=== PATIENT | female | born 1970 | race Caucasian/White ===

== ENCOUNTER 2017-05-29 16:10 | Inpatient (IN) | payer BC ==
[2017-05-29] MEDS ORDERED: Lactated Ringers 1,000 ML IV SCH (17:00)
[2017-05-29] MEDS ORDERED: methylPREDNISolone Sodium Succinate 125 MG/2 ML SDV IVPUSH ONE (17:15)
[2017-05-29] MEDS ORDERED: Levofloxacin/Dextrose 5%-Water 500 MG in Premix Bag 1 BAG IV ONE (17:15)
[2017-05-29] MEDS: Insulin Aspart 100 Units/ML 3 ML Pen SUBCUT SCH ×2 (17:33→20:11)
[2017-05-29] MEDS: Albuterol/Ipratropium 3.0-0.5 MG/3 ML Neb Soln NEB SCH ×2 (17:33→20:16)
[2017-05-29 17:37] LABS: CHLORIDE,CL 94 mEq/L (98-106); SODIUM,NA 128 mEq/L (136-145)
[2017-05-29] MEDS: Nicotine 14 MG/24 Hr Patch TRDERM SCH (18:05)
[2017-05-29] MEDS: Sodium Chloride 0.9% 1,000 ML IV SCH (18:05)
[2017-05-29] MEDS ORDERED: Insulin Detemir 100 Units/ML 3 ML Pen SUBCUT SCH (20:00)
[2017-05-29] MEDS: Enoxaparin 40 MG/0.4 ML Syringe SUBCUT SCH (20:07)
[2017-05-30] MEDS: Sodium Chloride 0.9% 1,000 ML IV SCH ×2 (07:54→21:04)
[2017-05-30] MEDS: Sertraline 100 MG Tab PO SCH (07:56)
[2017-05-30] MEDS: methylPREDNISolone Sodium Succinate 125 MG/2 ML SDV IVPUSH SCH (07:56)
[2017-05-30] MEDS: metFORMIN 500 MG Tab.ER PO SCH (07:56)
[2017-05-30] MEDS ORDERED: Remove Patch NICOTINE PATCH TRDERM SCH (08:00)
[2017-05-30] MEDS: Insulin Aspart 100 Units/ML 3 ML Pen SUBCUT SCH ×4 (08:05→20:57)
[2017-05-30] MEDS: Albuterol/Ipratropium 3.0-0.5 MG/3 ML Neb Soln NEB SCH ×4 (08:09→20:55)
[2017-05-30] MEDS: Nicotine 14 MG/24 Hr Patch TRDERM SCH (08:18)
[2017-05-30] MEDS: Ibuprofen 200 MG Tab PO PRN (08:21)
--- NOTE | 2017-05-30 09:37 | PN ---
DATE: 05/30/2017 S: Carmen Rocha is in with severe bronchiolitis, diabetes mellitus. O: NECK: Supple. CHEST: Wheezing throughout. CARDIAC: Sounds are good. EXTREMITIES: No edema. ASSESSMENT: [id number] BRONCHIOLITIS, UNCONTROLLED DIABETES MELLITUS. P: We are going to put her on a high sliding scale and try and get her under good control. Apparently, she does not have good control as an outpatient. She also has low magnesium, so we will start her on some magnesium. CASEY/BETTYE /[id number]
[2017-05-30] MEDS ORDERED: Insulin Aspart 100 Units/ML 3 ML Pen SUBCUT ONE ×2 (15:09→17:08)
[2017-05-30] MEDS: Enoxaparin 40 MG/0.4 ML Syringe SUBCUT SCH (20:55)
[2017-05-30] MEDS: Levofloxacin/Dextrose 5%-Water 500 MG in Premix Bag 1 BAG IV SCH (20:55)
[2017-05-30] MEDS: Insulin Detemir 100 Units/ML 3 ML Pen SUBCUT SCH (20:57)
[2017-05-30] MEDS: Acetaminophen 325 MG Tab PO PRN (21:04)
[2017-05-30] MEDS: Temazepam 15 MG Cap PO PRN (21:07)
[2017-05-31 07:33] LABS: CHLORIDE,CL 102 mEq/L (98-106); SODIUM,NA 135 mEq/L (136-145)
[2017-05-31] MEDS: metFORMIN 500 MG Tab.ER PO SCH (07:34)
[2017-05-31] MEDS: Sertraline 100 MG Tab PO SCH (07:34)
[2017-05-31] MEDS: Nicotine 14 MG/24 Hr Patch TRDERM SCH (07:34)
[2017-05-31] MEDS: methylPREDNISolone Sodium Succinate 125 MG/2 ML SDV IVPUSH SCH (07:35)
[2017-05-31] MEDS: Insulin Aspart 100 Units/ML 3 ML Pen SUBCUT SCH ×6 (08:25→21:23)
[2017-05-31] MEDS: Albuterol/Ipratropium 3.0-0.5 MG/3 ML Neb Soln NEB SCH ×4 (08:26→21:23)
[2017-05-31] MEDS: Ibuprofen 200 MG Tab PO PRN (11:10)
[2017-05-31] MEDS: Sodium Chloride 0.9% 1,000 ML IV SCH (12:03)
[2017-05-31] MEDS ORDERED: Iopamidol 612 MG/ML 100 ML Bottle IVPUSH ONE (12:46)
[2017-05-31] MEDS: Acetaminophen 325 MG Tab PO PRN (14:29)
--- NOTE | 2017-05-31 14:54 | PN ---
DATE: 05/31/2017 S: Carmen Rocha is in with bronchiolitis. O: NECK: Supple. CHEST: Still wheezing throughout. CARDIAC: Sounds are good. ASSESSMENT: DIABETES UNDER BETTER CONTROL TODAY AT 168. WE HAD A LONG DISCUSSION ABOUT DIET, WEIGHT LOSS, AND EXERCISE. P: Continue present therapy. CASEY/BETTYE /[id number]
[2017-05-31] MEDS: Enoxaparin 40 MG/0.4 ML Syringe SUBCUT SCH (19:16)
[2017-05-31] MEDS: Levofloxacin/Dextrose 5%-Water 500 MG in Premix Bag 1 BAG IV SCH (19:17)
[2017-05-31] MEDS: Insulin Detemir 100 Units/ML 3 ML Pen SUBCUT SCH (19:20)
[2017-05-31] MEDS: Temazepam 15 MG Cap PO PRN (23:11)
[2017-06-01] MEDS: Sodium Chloride 0.9% 1,000 ML IV SCH (03:22)
[2017-06-01] MEDS: metFORMIN 500 MG Tab.ER PO SCH (07:55)
[2017-06-01] MEDS: Sertraline 100 MG Tab PO SCH (07:55)
[2017-06-01] MEDS: methylPREDNISolone Sodium Succinate 125 MG/2 ML SDV IVPUSH SCH (07:55)
[2017-06-01] MEDS: Nicotine 14 MG/24 Hr Patch TRDERM SCH (07:56)
[2017-06-01] MEDS: Insulin Aspart 100 Units/ML 3 ML Pen SUBCUT SCH ×7 (07:57→21:21)
[2017-06-01] MEDS: Albuterol/Ipratropium 3.0-0.5 MG/3 ML Neb Soln NEB SCH ×4 (08:01→21:19)
[2017-06-01] MEDS: Acetaminophen 325 MG Tab PO PRN (08:08)
--- NOTE | 2017-06-01 08:42 | PCM.PN ---
- General Info Date of Service: 06/01/17 Admission Dx/Problem (Free Text): Bilateral Pneumonia Functional Status: Reports: Pain Controlled, Tolerating Diet. Denies: Ambulating - Review of Systems General: Reports: Weakness, Fatigue. Denies: Fever HEENT: Reports: No Symptoms Pulmonary: Reports: Shortness of Breath, Pleuritic Chest Pain, Cough, Wheezing Cardiovascular: Denies: Chest Pain, Edema, Lightheadedness Gastrointestinal: Denies: Abdominal Pain, Nausea, Vomiting Genitourinary: Reports: No Symptoms Musculoskeletal: Reports: No Symptoms Skin: Reports: No Symptoms Neurological: Reports: No Symptoms - Patient Data Vitals - Most Recent: Last Vital Signs Temp 98.0 F 06/01/17 07:43 Pulse 91 06/01/17 07:43 Resp 16 06/01/17 07:43 BP 145/70 H 06/01/17 07:43 Pulse Ox 93 L 06/01/17 07:43 Weight - Most Recent: 207 lb I&O - Last 24 Hours: Intake & Output 05/31/17 06/01/17 06/01/17 22:59 06:59 14:59 Intake Total 1000 Balance 1000 Lab Results Last 24 Hours: Laboratory Results - last 24 hr 05/31/17 05/31/17 05/31/17 Range/Units 11:40 17:27 20:52 POC Glucose 389 H 337 H 321 H (75-105) mg/dl 06/01/17 Range/Units 07:32 POC Glucose 150 H (75-105) mg/dl Edwin Results Last 24 Hours: Microbiology 05/29/17 18:50 Gram Stain - Final Sputum - Expectorated Sputum Culture - Preliminary Med Orders - Current: Current Medications Acetaminophen (Tylenol) 650 mg PO Q4H PRN PRN Reason: Pain (Mild 1-3)/fever Last Admin: 06/01/17 08:08 Dose: 650 mg Albuterol/Ipratropium (Duoneb 3.0-0.5 Mg/3 Ml) 3 ml NEB QIDRT [facility] Last Admin: 06/01/17 08:01 Dose: 3 ml Enoxaparin Sodium (Lovenox) 40 mg SUBCUT BEDTIME [facility] Last Admin: 05/31/17 19:16 Dose: 40 mg Levofloxacin/Dextrose 500 mg/ (Premix) 100 mls @ 100 mls/hr IV Q24H [facility] Last Admin: 05/31/17 19:17 Dose: 100 mls/hr Sodium Chloride (Normal Saline) 1,000 mls @ 75 mls/hr IV ASDIRECTED [facility] Last Admin: 06/01/17 03:22 Dose: 75 mls/hr Ibuprofen (Motrin) 200 - 600 mg PO Q6H PRN PRN Reason: Pain/Fever Last Admin: 05/31/17 11:10 Dose: 400 mg Insulin Aspart (Novolog) 0 unit SUBCUT WITHMEALSANDBED [facility] PRN Reason: Protocol Last Admin: 06/01/17 07:57 Dose: Not Given Insulin Aspart (Novolog) 10 unit SUBCUT TIDMEALS [facility] Last Admin: 06/01/17 07:57 Dose: 10 units Insulin Detemir (Levemir) 30 unit SUBCUT BEDTIME [facility] Last Admin: 05/31/17 19:20 Dose: 30 units Magnesium Oxide (Magnesium Oxide) 250 mg PO WITHBREAKFAST [facility] Last Admin: 06/01/17 07:56 Dose: 250 mg Metformin HCl (Glucophage Xr) 2,000 mg PO DAILY [facility] Last Admin: 06/01/17 07:55 Dose: 2,000 mg Methylprednisolone Sodium Succinate (Solu-Medrol) 62.5 mg IVPUSH Q24H [facility] Last Admin: 06/01/17 07:55 Dose: 62.5 mg Nicotine (Habitrol) 14 mg TRDERM DAILY [facility] Last Admin: 06/01/17 07:56 Dose: 14 mg Sertraline HCl (Zoloft) 200 mg PO DAILY [facility] Last Admin: 06/01/17 07:55 Dose: 200 mg Temazepam (Restoril) 15 mg PO BEDTIME PRN PRN Reason: Sleep Last Admin: 05/31/17 23:11 Dose: 15 mg Discontinued Medications Lactated Ringer's (Ringers, Lactated) 1,000 mls @ 75 mls/hr IV ASDIRECTED [facility] Last Admin: 05/29/17 17:29 Dose: 75 mls/hr Levofloxacin/Dextrose 500 mg/ (Premix) 100 mls @ 100 mls/hr IV ONETIME ONE Stop: 05/29/17 18:14 Last Admin: 05/29/17 17:30 Dose: 100 mls/hr Insulin Aspart (Novolog) 10 unit SUBCUT ONETIME ONE Stop: 05/30/17 15:10 Last Admin: 05/30/17 15:15 Dose: 10 units Insulin Aspart (Novolog) 10 unit SUBCUT ONETIME ONE Stop: 05/30/17 17:09 Last Admin: 05/30/17 17:19 Dose: 10 units Insulin Detemir (Levemir) 20 unit SUBCUT BEDTIME [facility] Last Admin: 05/29/17 20:10 Dose: 20 unit Iopamidol (Isovue-300 (61%)) 100 ml IVPUSH ONETIME ONE Stop: 05/31/17 12:47 Last Admin: 05/31/17 20:03 Dose: Not Given Methylprednisolone Sodium Succinate (Solu-Medrol) 62.5 mg IVPUSH ONETIME ONE Stop: 05/29/17 17:16 Last Admin: 05/29/17 17:29 Dose: 62.5 mg Miscellaneous Information (Remove Patch) 1 ea TRDERM DAILY [facility] - Exam General: Alert, Oriented HEENT: Mucous Membr. Moist/Bode Neck: Supple Lungs: Decreased Breath Sounds, Rhonchi, Wheezing Cardiovascular: Regular Rate, Regular Rhythm GI/Abdominal Exam: Normal Bowel Sounds, Soft, Non-Tender Extremities: Normal Inspection, No Pedal Edema Skin: Warm, Dry Neurological: No New Focal Deficit Psy/Mental Status: Alert, Normal Affect, Normal Mood - Problem List & Annotations (1) Pneumonia SNOMED Code(s): 832879381 Code(s): J18.9 - PNEUMONIA, UNSPECIFIED ORGANISM Status: Acute Current Visit: Yes Qualifiers: Pneumonia type: due to unspecified organism Laterality: bilateral Lung location: lower lobe of lung Qualified Code(s): J18.9 - Pneumonia, unspecified organism - Problem List Review Problem List Initiated/Reviewed/Updated: Yes - My Orders Last 24 Hours: My Active Orders 05/31/17 12:00 Insulin Aspart [NovoLOG] 10 unit SUBCUT TIDMEALS - Assessment Assessment:: Bilateral pneumonia due to unspecified organism. - Plan Plan:: Patient still continuing to cough, feels short of breath with any exertion. Patient still wheezing. Does have fatigue. CT scan of her chest was done yesterday and does show bilateral diffuse patchy infiltrates, ground glass in appearance with significant hilar adenopathy. Blood sugars still running high. Meal time insulin was added yesterday and basal was increased prior to this. Does not follow the diet given here, family also bring in meals for her as well as she is still on steroids. Due to CT noting bilateral pneumonia, will keep the patient another day or 2 for IV antibiotics, steroids and adjust insulin as needed. Repeat labs in am. Continue nebulizer treatments. Encouraged to ambulate today if able to tolerate.
[2017-06-01] MEDS: Enoxaparin 40 MG/0.4 ML Syringe SUBCUT SCH (19:54)
[2017-06-01] MEDS: Levofloxacin/Dextrose 5%-Water 500 MG in Premix Bag 1 BAG IV SCH (19:54)
[2017-06-01] MEDS: Insulin Detemir 100 Units/ML 3 ML Pen SUBCUT SCH (21:20)
[2017-06-01] MEDS: Temazepam 15 MG Cap PO PRN (23:25)
[2017-06-02 07:39] LABS: CHLORIDE,CL 100 mEq/L (98-106); SODIUM,NA 137 mEq/L (136-145)
[2017-06-02] MEDS: metFORMIN 500 MG Tab.ER PO SCH (07:40)
[2017-06-02] MEDS: Sertraline 100 MG Tab PO SCH (07:40)
[2017-06-02] MEDS: Nicotine 14 MG/24 Hr Patch TRDERM SCH (07:41)
[2017-06-02] MEDS: methylPREDNISolone Sodium Succinate 125 MG/2 ML SDV IVPUSH SCH (07:43)
[2017-06-02] MEDS: Insulin Aspart 100 Units/ML 3 ML Pen SUBCUT SCH ×5 (07:48→16:56)
[2017-06-02] MEDS ORDERED: Insulin Aspart 100 Units/ML 3 ML Pen SUBCUT SCH (08:00)
[2017-06-02] MEDS: Albuterol/Ipratropium 3.0-0.5 MG/3 ML Neb Soln NEB SCH ×3 (08:03→15:34)
[2017-06-02 11:32] VITALS: BP 148/76
--- NOTE | 2017-06-02 12:47 | PCM.DCSUM1 ---
Discharge Summary - Hospital Course Free Text/Narrative:: Patient was admitted on 05/29/17 with bilateral pneumonia. She has been on IV levaquin and IV steroids. Patient is starting to feel quite a bit better. Blood sugars have been monitored closely due to elevation secondary to steroids but also underlying poor overall control. Patient states normal blood sugars run 300-400 at home. She is being sent home on a schedule dose of novolog prior to meals. She will need to follow up with her regular provider to adjust those doses. She has been afebrile the last 48 hours. O2 sats are greater than 95%. This morning lungs were quite wheezy however after lunch she was moving much more air and lungs sounded better with a few scattered wheezes and pops primarily RUL. She is ambulating in [place] with very mild SOB and we have her working on an incentive spirometer. She is well enough to be discharged home to complete recuperation there. She is to use albuterol nebs at least 4 times daily at home and is give an RX for that. She can use her moms nebulizer. She is going to get a dose of outpatient levaquin tomorrow and is to follow up with her regular provider on sunday to see if she is ready to be switched to oral antibiotics. Patient voiced understanding of all this information. - Discharge Data Discharge Date: 06/02/17 Discharge Disposition: Home, Self-Care 01 Condition: Good - Discharge Diagnosis/Problem(s) (1) Pneumonia SNOMED Code(s): 967805865 ICD Code: J18.9 - PNEUMONIA, UNSPECIFIED ORGANISM Status: Acute Priority : High Current Visit: Yes Qualifiers: Pneumonia type: due to unspecified organism Laterality: bilateral Lung location: lower lobe of lung Qualified Code(s): J18.9 - Pneumonia, unspecified organism - Patient Summary/Data Consults: Consultations 05/29/17 17:00 Respiratory Care Assess and Treatment [CONS] Routine - Patient Instructions Diet: Heart Healthy Diet Activity: As Tolerated Driving: May Drive Today Showering/Bathing: May Shower Notify Provider of: Fever Other/Special Instructions: Return to ER if you develop chest pain or extreme shortness of breath or feel like you are getting worse instead of better. - Discharge Plan Home Medications: Home Meds Ibuprofen 200 - 600 mg PO Q6H PRN 07/15/14 [History] Sertraline HCl 200 mg PO DAILY 07/15/14 [History] Calcium Carbonate [Tums] 500 mg PO DAILY PRN 05/29/17 [History] MV,Ca,Min/Iron Fum/FA/Vit K [Multi For Her Tablet] 1 tab PO DAILY 05/29/17 [ History] metFORMIN HCl [Metformin HCl ER] 2,000 mg PO DAILY 05/29/17 [History] Albuterol/Ipratropium [DuoNeb 3.0-0.5 MG/3 ML] 3 ml NEB QIDRT #0 neb 06/02/17 [ Rx] Insulin Aspart [NovoLOG] 10 unit SUBCUT 0800 #0 pen 06/02/17 [Rx] Insulin Aspart [NovoLOG] 20 unit SUBCUT 1200 pen 06/02/17 [Rx] Insulin Aspart [NovoLOG] 20 unit SUBCUT 1730 pen 06/02/17 [Rx] Insulin Detemir [Levemir] 30 unit SUBCUT BEDTIME pen 06/02/17 [Rx] Patient Handouts: Shortness of Breath, [id number] - Discharge Summary/Plan Comment DC Time >30 min.: No - Patient Data Vitals - Most Recent: Last Vital Signs Temp 36.5 C 06/02/17 11:31 Pulse 66 06/02/17 11:31 Resp 18 06/02/17 11:31 BP 148/76 H 06/02/17 11:31 Pulse Ox 98 06/02/17 11:31 Weight - Most Recent: 93.894 kg I&O - Last 24 hours: Intake & Output 06/01/17 06/02/17 06/02/17 22:59 06:59 14:59 Intake Total 400 Balance 400 Lab Results - Last 24 hrs: Laboratory Results - last 24 hr 06/01/17 06/01/17 06/01/17 Range/Units 11:35 17:31 20:08 WBC (5.0-10.0) 10^3/uL RBC (4.00-5.50) 10^6/uL Hgb (12.0-16.0) g/dL Hct (37.0-47.0) % MCV (82.0-94.0) fL MCH (27.0-32.0) pg MCHC (33.0-38.0) g/dL RDW Coeff of Devan (11.0-15.0) % Plt Count (150-400) 10^3/uL Neut % (Auto) (35-85) % Lymph % (Auto) (10-55) % [place] % (Auto) (0-16) % Eos % (Auto) (0-5) % Baso % (Auto) (0-3) % Neut # (Auto) (1.80-7.00) 10^3/uL Lymph # (Auto) (1.00-4.80) 10^3/uL [place] # (Auto) (0.00-0.80) 10^3/uL Eos # (Auto) (0.00-0.45) 10^3/uL Baso # (Auto) 10^3/uL Sodium (136-145) mEq/L Potassium (3.5-5.0) mEq/L Chloride (98-106) mEq/L Carbon Dioxide (21-32) mmol/L BUN (7-18) mg/dL Creatinine (0.6-1.0) mg/dL Est Cr Clr Drug Dosing mL/min Estimated GFR (MDRD) (>=60) mL/min Glucose (75-99) mg/dL POC Glucose 296 H 319 H 316 H (75-105) mg/dl Calcium (8.4-10.1) mg/dL C-Reactive Protein (0.2-0.8) mg/dL 06/02/17 06/02/17 06/02/17 Range/Units 05:11 05:11 07:25 WBC 10.8 H (5.0-10.0) 10^3/uL RBC 4.25 (4.00-5.50) 10^6/uL Hgb 12.6 (12.0-16.0) g/dL Hct 38.4 (37.0-47.0) % MCV 90.4 (82.0-94.0) fL MCH 29.6 (27.0-32.0) pg MCHC 32.8 L (33.0-38.0) g/dL RDW Coeff of Devan 13.9 (11.0-15.0) % Plt Count 246 (150-400) 10^3/uL Neut % (Auto) 58.6 (35-85) % Lymph % (Auto) 31.4 (10-55) % [place] % (Auto) 6.7 (0-16) % Eos % (Auto) 3.0 (0-5) % Baso % (Auto) 0.3 (0-3) % Neut # (Auto) 6.35 (1.80-7.00) 10^3/uL Lymph # (Auto) 3.39 (1.00-4.80) 10^3/uL [place] # (Auto) 0.72 (0.00-0.80) 10^3/uL Eos # (Auto) 0.32 (0.00-0.45) 10^3/uL Baso # (Auto) 0.03 10^3/uL Sodium 137 (136-145) mEq/L Potassium 3.7 (3.5-5.0) mEq/L Chloride 100 (98-106) mEq/L Carbon Dioxide 30 (21-32) mmol/L BUN 10 (7-18) mg/dL Creatinine 0.6 (0.6-1.0) mg/dL Est Cr Clr Drug Dosing 105.26 mL/min Estimated GFR (MDRD) > 60 (>=60) mL/min Glucose 167 H (75-99) mg/dL POC Glucose 147 H (75-105) mg/dl Calcium 8.7 (8.4-10.1) mg/dL C-Reactive Protein 1.7 H (0.2-0.8) mg/dL [facility]AD[facility] Results - Last 24 hrs: Microbiology 05/29/17 18:50 Gram Stain - Final Sputum - Expectorated Sputum Culture - Final Med Orders - Current: Current Medications Acetaminophen (Tylenol) 650 mg PO Q4H PRN PRN Reason: Pain (Mild 1-3)/fever Last Admin: 06/01/17 08:08 Dose: 650 mg Albuterol/Ipratropium (Duoneb 3.0-0.5 Mg/3 Ml) 3 ml NEB QIDRT [facility] Last Admin: 06/02/17 08:03 Dose: 3 ml Enoxaparin Sodium (Lovenox) 40 mg SUBCUT BEDTIME [facility] Last Admin: 06/01/17 19:54 Dose: 40 mg Levofloxacin/Dextrose 500 mg/ (Premix) 100 mls @ 100 mls/hr IV Q24H [facility] Last Admin: 06/01/17 19:54 Dose: 100 mls/hr Ibuprofen (Motrin) 200 - 600 mg PO Q6H PRN PRN Reason: Pain/Fever Last Admin: 05/31/17 11:10 Dose: 400 mg Insulin Aspart (Novolog) 0 unit SUBCUT WITHMEALSANDBED [facility] PRN Reason: Protocol Last Admin: 06/02/17 12:01 Dose: 9 unit Insulin Aspart (Novolog) 10 unit SUBCUT 0800 [facility] Last Admin: 06/02/17 07:48 Dose: 10 units Insulin Aspart (Novolog) 20 unit SUBCUT 1200 [facility] Last Admin: 06/02/17 12:01 Dose: 20 units Insulin Aspart (Novolog) 20 unit SUBCUT 1730 [facility] Last Admin: 06/01/17 17:33 Dose: 20 units Insulin Detemir (Levemir) 30 unit SUBCUT BEDTIME [facility] Last Admin: 06/01/17 21:20 Dose: 30 units Magnesium Oxide (Magnesium Oxide) 250 mg PO WITHBREAKFAST [facility] Last Admin: 06/02/17 07:40 Dose: 250 mg Metformin HCl (Glucophage Xr) 2,000 mg PO DAILY [facility] Last Admin: 06/02/17 07:40 Dose: 2,000 mg Methylprednisolone Sodium Succinate (Solu-Medrol) 62.5 mg IVPUSH Q24H [facility] Last Admin: 06/02/17 07:43 Dose: 62.5 mg Nicotine (Habitrol) 14 mg TRDERM DAILY [facility] Last Admin: 06/02/17 07:41 Dose: 14 mg Sertraline HCl (Zoloft) 200 mg PO DAILY [facility] Last Admin: 06/02/17 07:40 Dose: 200 mg Temazepam (Restoril) 15 mg PO BEDTIME PRN PRN Reason: Sleep Last Admin: 06/01/17 23:25 Dose: 15 mg Discontinued Medications Lactated Ringer's (Ringers, Lactated) 1,000 mls @ 75 mls/hr IV ASDIRECTED [facility] Last Admin: 05/29/17 17:29 Dose: 75 mls/hr Levofloxacin/Dextrose 500 mg/ (Premix) 100 mls @ 100 mls/hr IV ONETIME ONE Stop: 05/29/17 18:14 Last Admin: 05/29/17 17:30 Dose: 100 mls/hr Sodium Chloride (Normal Saline) 1,000 mls @ 75 mls/hr IV ASDIRECTED [facility] Last Admin: 06/01/17 03:22 Dose: 75 mls/hr Insulin Aspart (Novolog) 10 unit SUBCUT ONETIME ONE Stop: 05/30/17 15:10 Last Admin: 05/30/17 15:15 Dose: 10 units Insulin Aspart (Novolog) 10 unit SUBCUT ONETIME ONE Stop: 05/30/17 17:09 Last Admin: 05/30/17 17:19 Dose: 10 units Insulin Aspart (Novolog) 10 unit SUBCUT TIDMEALS [facility] Last Admin: 06/01/17 07:57 Dose: 10 units Insulin Detemir (Levemir) 20 unit SUBCUT BEDTIME [facility] Last Admin: 05/29/17 20:10 Dose: 20 unit Iopamidol (Isovue-300 (61%)) 100 ml IVPUSH ONETIME ONE Stop: 05/31/17 12:47 Last Admin: 05/31/17 20:03 Dose: Not Given Methylprednisolone Sodium Succinate (Solu-Medrol) 62.5 mg IVPUSH ONETIME ONE Stop: 05/29/17 17:16 Last Admin: 05/29/17 17:29 Dose: 62.5 mg Miscellaneous Information (Remove Patch) 1 ea TRDERM DAILY [facility] *Q Meaningful Use (DIS) - VTE *Q VTE Criteria *Q: - Stroke *Q Stroke Criteria *Q: - AMI *Q AMI Criteria *Q:
[2017-06-02] MEDS ORDERED: Levofloxacin/Dextrose 5%-Water 500 MG in Premix Bag 1 BAG IV SCH (16:00)
== END 2017-06-02 17:24 | disposition home or self-care (01) | DRG 139 ==
LOC: UNDOADMIN 16:10 → CC.MS 16:10
PROVIDERS: ADMIT General Practice; ATTEND General Practice
DX: J18.9 Pneumonia, unspecified organism (principal); F32.9 Major depressive disorder, single episode, unspecified; E11.65 Type 2 diabetes mellitus with hyperglycemia; Z79.4 Long term (current) use of insulin; Z79.84 Long term (current) use of oral hypoglycemic drugs; E83.42 Hypomagnesemia; Z88.8 Allergy status to other drugs, medicaments and biological substances; Z79.899 Other long term (current) drug therapy
CPT/HCPCS: 36415; 71020; 71260; 80048; 80053; 81001; 82962; 83735; 84443; 85025; 86140; 87070; 87205; 94640; 94640-76; A9270-GY; J1650; J1815-GY; J1956; J2930; J7030; J7120; Q9967

== ENCOUNTER 2019-05-02 13:23 | Emergency (ER) | payer BC ==
[2019-05-02] MEDS ORDERED: Acetaminophen/oxyCODONE 325-5 MG Tab PO ONE (13:39)
[2019-05-02] MEDS ORDERED: Silver Sulfadiazine 1% Crm 20 GM Tube TOP ONE (13:40)
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
[2019-05-02 13:44] VITALS: BP 142/74
[2019-05-02] MEDS ORDERED: Silver Sulfadiazine 1% Crm 50 GM Tube TOP ONE (13:52)
[2019-05-02] MEDS ORDERED: Diphtheria,Pertussis(Acell),Tetanus Vaccine 0.5 ML Syringe IM ONE (13:53)
== END 2019-05-02 14:30 | disposition home or self-care (01) ==
LOC: CC.ED 13:23
DX: T23.272A Burn of second degree of left wrist, initial encounter (principal); E11.9 Type 2 diabetes mellitus without complications; Z23 Encounter for immunization; Z88.5 Allergy status to narcotic agent; Z88.8 Allergy status to other drugs, medicaments and biological substances; Z79.899 Other long term (current) drug therapy; X19.XXXA Contact with other heat and hot substances, initial encounter
CPT/HCPCS: 16020; 90471; 90715; 99282; A9270-GY

== ENCOUNTER → 2020-06-11 | Day surgery (SDC) | payer BC ==
[~2020-06-11] MED LIST: Ketamine 200 MG/20 ML MDV IV ONE; Lactated Ringers 1,000 ML IV SCH; Propofol 200 MG/20 ML SDV IV ONE; fentaNYL 100 MCG/2 ML SDV IV ONE
[2020-06-11 12:29] VITALS: BP 180/74; PULSE 57
--- NOTE | 2020-06-11 15:05 | OR ---
DATE OF OPERATION: 06/11/2020 PREOPERATIVE DIAGNOSIS: EPIGASTRIC PAIN. POSTOPERATIVE DIAGNOSIS: EPIGASTRIC PAIN. SURGEON: Rickey Mills MD PROCEDURE: DIAGNOSTIC EGD WITH BIOPSIES X3, LU, FORCEPS POLYP REMOVAL X1. ANESTHESIA: MAC. COMPLICATIONS: None. SPECIMEN: 1. Duodenal bulb biopsy x1. 2. Fundal biopsy x1. 3. Distal esophageal biopsy x1. 4. Antral LU. 5. Fundal polyp. FINDINGS: 1. Full-length diagnostic EGD. 2. Heterotopic gastric tissue, duodenal bulb. 3. Small hiatal hernia with reflux esophagitis and ulceration. 4. Fundal polyposis, mild. 5. Evidence of prior healed small gastric erosions. RECOMMENDATIONS: Given the lack of any obvious acute or significant issue for her significant epigastric pain, nausea, and altered bowel habits, would recommend gallbladder evaluation. INDICATIONS: The patient has been having some ongoing issues with epigastric pain postprandial at times associated with altered bowel habits. May Lindsey sent her for diagnostic EGD concerned with peptic ulcer disease. DESCRIPTION OF PROCEDURE: The patient was prepped and draped, placed in the left lateral decubitus position. A lubricated Olympus gastroscope was inserted over a bit, advanced to cricopharyngeus area, and easily intubated into the esophagus. The esophageal lining was benign until its most distal portion. The Z-line is crisp, around 37 cm. There is a small hernia present. No spontaneous reflux was seen, but there was 1 small area of esophagitis with a small little ulceration. We did do a biopsy of that. The scope was easily passed into the stomach, through the pylorus, and into the second portion of the duodenum. The second portion of duodenum was benign. The duodenal bulb had some heterotopic gastric tissue biopsied for confirmation. The scope was brought back into the stomach and retroflexed. The upper fundus and cardia were essentially benign other than seeing the small hernia. There were probably 3 or 4 very small fundal polyps, we did remove one in its entirety. No active peptic ulcer disease was seen in the fundus or antrum. The patient had evidence of some very small erosions that are healed over. We did do a biopsy of one of these, took a CLOtest from the antrum. Air was then suctioned from the stomach and the scope removed without complication. MILENA/BETTYE /[id number]
== END ==
LOC: CC.SDS 10:00
PROVIDERS: ATTEND Family Medicine
DX: K31.89 Other diseases of stomach and duodenum (principal); K31.7 Polyp of stomach and duodenum; K22.10 Ulcer of esophagus without bleeding; K20.90 Esophagitis, unspecified without bleeding; E11.9 Type 2 diabetes mellitus without complications; F17.210 Nicotine dependence, cigarettes, uncomplicated; Z88.8 Allergy status to other drugs, medicaments and biological substances; Z79.899 Other long term (current) drug therapy; Z79.4 Long term (current) use of insulin; Z98.890 Other specified postprocedural states
CPT/HCPCS: 76705; 87081; J2001; J2704; J3010; J7120

== ENCOUNTER 2020-10-04 18:16 | Observation (INO) | payer BC ==
[2020-10-04 19:05] LABS: CHLORIDE,CL 94 mEq/L (98-106); SODIUM,NA 134 mEq/L (136-145)
[2020-10-04] MEDS ORDERED: Ondansetron 4 MG/2 ML SDV IVPUSH STA (19:09)
[2020-10-04] MEDS ORDERED: Lactated Ringers 1,000 ML IV ONE (19:09)
[2020-10-04] MEDS ORDERED: Sodium Chloride 0.9% 1,000 ML IV ONE (19:10)
--- NOTE | 2020-10-04 19:16 | EDM.PDOC ---
ED HPI GENERAL MEDICAL PROBLEM - General Chief Complaint: Gastrointestinal Problem Stated Complaint: N/V/D Time Seen by Provider: 10/04/20 18:40 Source of Information: Reports: Patient History Limitations: Reports: No Limitations - History of Present Illness INITIAL COMMENTS - FREE TEXT/NARRATIVE: Carmen is a 49 yo female who presents to the ED with c/o nausea, vomiting, and diarrhea. She reports symptoms started at 5 am today. She reports she has vomited 10+ times today and has had 3-4 loose stools. Reports she has been unable to eat or drink all day. She denies any abdominal pain or fever. Does report she had lumbar fusion approximately 2 weeks ago. Has been doing well post operatively. She denies any other symptoms or complaints. Onset: Today Onset Date: 10/04/20 Onset Time: 05:00 Duration: Constant Location: Reports: Abdomen (nausea, vomiting, diarrhea) Associated Symptoms: Reports: Loss of Appetite, Malaise, Nausea/Vomiting. Denies: Confusion, Chest Pain, Cough, cough w sputum, Diaphoresis, Fever/Chills, Headaches, Rash, Seizure, Shortness of Breath, Syncope, Weakness - Related Data Allergies Allergy/AdvReac Type Severity Reaction Status Date / Time morphine Allergy Diaphoresis Verified 10/04/20 18:32 naproxen Allergy Hives Verified 10/04/20 18:32 sucralfate [From Carafate] Allergy Cannot Verified 10/04/20 18:32 Remember Home Meds: Home Meds Ibuprofen 200 - 600 mg PO Q6H PRN 07/15/14 [History] Citalopram Hydrobromide [Celexa] 40 mg PO DAILY 06/10/20 [History] sitaGLIPtin Phos/Metformin HCl [Janumet Xr 50-1,000 mg Tablet] 1 tab PO DAILY 06/10/20 [History] Pantoprazole Sodium [Protonix] 40 mg PO DAILY 06/11/20 [History] Past Medical History [employer] History: Reports: Other (See Below) Other [employer] History: partial hysterectomy Endocrine/Metabolic History: Reports: Diabetes, Type II - Past Surgical History Musculoskeletal Surgical History: Reports: Other (See Below) Other Musculoskeletal Surgeries/Procedures:: back surgery Social & Family History - Family History Family Medical History: No Pertinent Family History - Tobacco Use Tobacco Use Status *Q: Never Tobacco User - Caffeine Use Caffeine Use: Reports: None - Recreational Drug Use Recreational Drug Use: No ED ROS GENERAL - Review of Systems Review Of Systems: Comprehensive ROS is negative, except as noted in HPI. Constitutional: Reports: Malaise, Decreased Appetite. Denies: Fever, Weakness HEENT: Reports: No Symptoms Respiratory: Reports: No Symptoms. Denies: Shortness of Breath, Cough Cardiovascular: Reports: No Symptoms. Denies: Chest Pain, Dyspnea on Exertion, Edema, Lightheadedness Endocrine: Reports: High Glucose GI/Abdominal: Reports: Diarrhea, Decreased Appetite, Nausea, Vomiting. Denies: Abdominal Pain, Black Stool, Bloody Stool : Reports: No Symptoms. Denies: Dysuria, Flank Pain, Frequency, Urgency Musculoskeletal: Reports: No Symptoms Skin: Reports: No Symptoms Neurological: Reports: No Symptoms Psychiatric: Reports: No Symptoms Hematologic/Lymphatic: Reports: No Symptoms Immunologic: Reports: No Symptoms ED EXAM, GI/ABD - Physical Exam Exam: See Below Exam Limited By: No Limitations General Appearance: Alert, WD/WN, No Apparent Distress, Mild Distress Eyes: Bilateral: EOMI Throat/Mouth: Normal Inspection, Normal Lips, Normal Teeth, Normal Gums, Normal Oropharynx, Normal Voice, No Airway Compromise Head: Atraumatic, Normocephalic Neck: Normal Inspection, Supple, Non-Tender, Full Range of Motion Respiratory/Chest: No Respiratory Distress, Lungs Clear, Normal Breath Sounds, No Accessory Muscle Use, Chest Non-Tender Cardiovascular: Normal Peripheral Pulses, Regular Rate, Rhythm, No Edema, No Gallop, No JVD, No Murmur, No Rub GI/Abdominal Exam: Normal Bowel Sounds, Soft, Non-Tender, No Organomegaly, No Distention, No Mass. No: Guarding, Rigid, Rebound, Tender Back Exam: Normal Inspection, Full Range of Motion, NT Extremities: Normal Inspection, Normal Range of Motion, Non-Tender, Normal Capillary Refill, No Pedal Edema Neurological: Alert, Oriented, CN II-XII Intact, Normal Cognition, Normal Gait, Normal Reflexes, No Motor/Sensory Deficits Psychiatric: Anxious Skin Exam: Warm, Dry, Intact, Normal Color, No Rash Lymphatic: No Adenopathy Course - Vital Signs Last Recorded V/S: Last Vital Signs Temp 98.9 F 10/04/20 19:45 Pulse 75 10/04/20 19:45 Resp 16 10/04/20 19:45 BP 176/80 H 10/04/20 19:45 Pulse Ox 98 10/04/20 19:45 - Orders/Labs/Meds Orders: Active Orders 24 hr Category Date Time Status Patient Status Manage Transfer [TRANSFER] Routine ADT 10/04/20 20:33 Active Resuscitation Status Routine Resus Stat 10/04/20 20:34 Ordered Labs: Laboratory Tests 10/04/20 10/04/20 10/04/20 Range/Units 18:36 18:39 18:48 WBC 14.2 H (5.0-10.0) 10^3/uL RBC 4.15 (4.00-5.50) 10^6/uL Hgb 13.0 (12.0-16.0) g/dL Hct 37.4 (37.0-47.0) % MCV 90.1 (82.0-94.0) fL MCH 31.3 (27.0-32.0) pg MCHC 34.8 (33.0-38.0) g/dL RDW Coeff of Devan 12.7 (11.0-15.0) % Plt Count 549 H (150-400) 10^3/uL Neut % (Auto) 80.8 (35-85) % Lymph % (Auto) 13.2 (10-55) % [place] % (Auto) 5.6 (0-16) % Eos % (Auto) 0.2 (0-5) % Baso % (Auto) 0.2 (0-3) % Neut # (Auto) 11.47 H (1.80-7.00) 10^3/uL Lymph # (Auto) 1.88 (1.00-4.80) 10^3/uL [place] # (Auto) 0.80 (0.00-0.80) 10^3/uL Eos # (Auto) 0.03 (0.00-0.45) 10^3/uL Baso # (Auto) 0.03 10^3/uL Sodium (136-145) mEq/L Potassium (3.5-5.0) mEq/L Chloride (98-106) mEq/L Carbon Dioxide (21-32) mmol/L BUN (7-18) mg/dL Creatinine (0.6-1.0) mg/dL Est Cr Clr Drug Dosing mL/min Estimated GFR (MDRD) (>=60) mL/min Glucose (75-99) mg/dL Calcium (8.4-10.1) mg/dL Total Bilirubin (0.0-1.0) mg/dL AST (15-37) U/L ALT (12-78) U/L Alkaline Phosphatase (46-116) U/L C-Reactive Protein (0.2-0.8) mg/dL Total Protein (6.4-8.2) g/dL Albumin (3.4-5.0) g/dL Amylase (25-115) U/L Lipase (73-393) U/L Urine Color Yellow (YELLOW) Urine Appearance Turbid (CLEAR) Urine pH 7.0 (4.5-8.0) Ur Specific [place] >= 1.030 H (1.003-1.020) Urine Protein >=300 H (NEGATIVE) mg/dL Urine Glucose (UA) 250 H (NEGATIVE) mg/dL Urine Ketones 40 H (NEGATIVE) mg/dL Urine Occult Blood Trace-intact H (NEGATIVE) Urine Nitrite Negative (NEGATIVE) Urine Bilirubin Negative (NEGATIVE) Urine Urobilinogen 0.2 (0.2-1.0) EU/dL Ur Leukocyte Esterase Negative (NEGATIVE) Urine RBC 0-5 (0-5) /HPF Urine WBC 0-5 (0-5) /HPF Amorphous Sediment Many H (NOT SEEN) /HPF Urine Opiates Screen Negative (NEGATIVE) Ur Oxycodone Screen Negative (NEGATIVE) Urine Methadone Screen Negative (NEGATIVE) Ur Barbiturates Screen Negative (NEGATIVE) U Tricyclic Antidepress Positive H (NEGATIVE) Ur Phencyclidine Scrn Negative (NEGATIVE) Ur Amphetamine Screen Negative (NEGATIVE) U Methamphetamines Scrn Negative (NEGATIVE) Urine MDMA Screen Negative (NEGATIVE) U Benzodiazepines Scrn Negative (NEGATIVE) Urine Cocaine Screen Negative (NEGATIVE) U Marijuana (THC) Screen Positive H (NEGATIVE) SARS CoV-2 RNA Rapid CHERRIE (NEGATIVE) 10/04/20 10/04/20 Range/Units 18:48 18:48 WBC (5.0-10.0) 10^3/uL RBC (4.00-5.50) 10^6/uL Hgb (12.0-16.0) g/dL Hct (37.0-47.0) % MCV (82.0-94.0) fL MCH (27.0-32.0) pg MCHC (33.0-38.0) g/dL RDW Coeff of Devan (11.0-15.0) % Plt Count (150-400) 10^3/uL Neut % (Auto) (35-85) % Lymph % (Auto) (10-55) % [place] % (Auto) (0-16) % Eos % (Auto) (0-5) % Baso % (Auto) (0-3) % Neut # (Auto) (1.80-7.00) 10^3/uL Lymph # (Auto) (1.00-4.80) 10^3/uL [place] # (Auto) (0.00-0.80) 10^3/uL Eos # (Auto) (0.00-0.45) 10^3/uL Baso # (Auto) 10^3/uL Sodium 134 L (136-145) mEq/L Potassium 4.3 (3.5-5.0) mEq/L Chloride 94 L (98-106) mEq/L Carbon Dioxide 27 (21-32) mmol/L BUN 9 (7-18) mg/dL Creatinine 0.8 (0.6-1.0) mg/dL Est Cr Clr Drug Dosing 74.86 mL/min Estimated GFR (MDRD) > 60 (>=60) mL/min Glucose 305 H* (75-99) mg/dL Calcium 9.9 (8.4-10.1) mg/dL Total Bilirubin 0.6 (0.0-1.0) mg/dL AST 10 L (15-37) U/L ALT 15 (12-78) U/L Alkaline Phosphatase 129 H (46-116) U/L C-Reactive Protein 5.3 H (0.2-0.8) mg/dL Total Protein 8.5 H (6.4-8.2) g/dL Albumin 3.5 (3.4-5.0) g/dL Amylase 64 (25-115) U/L Lipase 82 (73-393) U/L Urine Color (YELLOW) Urine Appearance (CLEAR) Urine pH (4.5-8.0) Ur Specific [place] (1.003-1.020) Urine Protein (NEGATIVE) mg/dL Urine Glucose (UA) (NEGATIVE) mg/dL Urine Ketones (NEGATIVE) mg/dL Urine Occult Blood (NEGATIVE) Urine Nitrite (NEGATIVE) Urine Bilirubin (NEGATIVE) Urine Urobilinogen (0.2-1.0) EU/dL Ur Leukocyte Esterase (NEGATIVE) Urine RBC (0-5) /HPF Urine WBC (0-5) /HPF Amorphous Sediment (NOT SEEN) /HPF Urine Opiates Screen (NEGATIVE) Ur Oxycodone Screen (NEGATIVE) Urine Methadone Screen (NEGATIVE) Ur Barbiturates Screen (NEGATIVE) U Tricyclic Antidepress (NEGATIVE) Ur Phencyclidine Scrn (NEGATIVE) Ur Amphetamine Screen (NEGATIVE) U Methamphetamines Scrn (NEGATIVE) Urine MDMA Screen (NEGATIVE) U Benzodiazepines Scrn (NEGATIVE) Urine Cocaine Screen (NEGATIVE) U Marijuana (THC) Screen (NEGATIVE) SARS CoV-2 RNA Rapid CHERRIE Negative (NEGATIVE) Meds: Medications Discontinued Medications Generic Name Dose Route Start Last Admin Trade Name Freq PRN Reason Stop Dose Admin Lactated Ringer's 1,000 mls @ 999 mls/hr 10/04/20 19:09 10/04/20 19:26 Ringers, Lactated IV 10/04/20 20:09 Not Given .BOLUS ONE Sodium Chloride 1,000 mls @ 999 mls/hr 10/04/20 19:10 10/04/20 19:24 Normal Saline IV 10/04/20 20:10 999 mls/hr .BOLUS ONE Administration Ondansetron HCl 4 mg 10/04/20 19:09 10/04/20 19:23 Zofran IVPUSH 10/04/20 19:10 4 mg STAT STA Administration Ondansetron HCl 2 packet 10/04/20 20:19 10/04/20 20:30 Take Home: Ondansetron Odt 4 Mg, 2 Tab Pack PO 10/04/20 20:20 Not Given ONETIME ONE - Re-Assessments/Exams Free Text/Narrative Re-Assessment/Exam: 10/04/20 20:45 1 L fluid bolus and 4 mg zofran completed. Patient continues to have generalized malaise, nausea and vomiting. Did have 100 mL emesis. Will admit to observation for continued IV fluids and antiemetics. Recheck labs in am. 10/04/20 21:05 Departure - Departure Time of Disposition: 20:33 Disposition: Refer to Observation Condition: Fair Clinical Impression: Viral gastroenteritis - Discharge Information *PRESCRIPTION DRUG MONITORING PROGRAM REVIEWED*: Not Applicable *COPY OF PRESCRIPTION DRUG MONITORING REPORT IN PATIENT MATT: Not Applicable Instructions: Viral Gastroenteritis, Adult, [id number] Referrals: May Lindsey PA-C [Primary Care Provider] - Forms: ED Department Discharge Sepsis Event Note (ED) - Evaluation Sepsis Screening Result: No Definite Risk - Focused Exam Vital Signs: Vital Signs Temp Pulse Resp BP BP Pulse Ox 10/04/20 19:45 98.9 F 75 16 176/80 H 98 10/04/20 18:59 188/68 H 10/04/20 18:23 96.3 F L 76 18 194/104 H 99 - Problem List & Annotations (1) Nausea & vomiting SNOMED Code(s): 27326833 Code(s): R11.2 - NAUSEA WITH VOMITING, UNSPECIFIED Status: Acute Qualifiers: Vomiting type: unspecified Vomiting Intractability: non-intractable Qualified Code(s): R11.2 - Nausea with vomiting, unspecified (2) Dehydration SNOMED Code(s): 75620582 Code(s): E86.0 - DEHYDRATION Status: Acute (3) Leukocytosis SNOMED Code(s): 747510736, 918821566 Code(s): D72.829 - ELEVATED WHITE BLOOD CELL COUNT, UNSPECIFIED Status: Acute Qualifiers: Leukocytosis type: unspecified Qualified Code(s): D72.829 - Elevated white blood cell count, unspecified - Problem List Review Problem List Initiated/Reviewed/Updated: Yes - My Orders Last 24 Hours: My Active Orders 10/04/20 20:33 Patient Status Manage Transfer [TRANSFER] Routine 10/04/20 20:34 Resuscitation Status Routine - Assessment/Plan Admission H&P: Please use this note as an admission H&P Last 24 Hours: My Active Orders 10/04/20 20:33 Patient Status Manage Transfer [TRANSFER] Routine 10/04/20 20:34 Resuscitation Status Routine Assessment:: Nausea and vomiting Dehydration Leukocytosis Plan: Presents with 12+ hours of nausea, vomiting and diarrhea. Has been unable to keep any oral liquids down all day. Labs significant for WBC 14.2, CRP 5.3, Na 134. Patient appears dry. Drug screen + marijuana. Active emesis during ED stay despite IV zofran. Will admit to observation overnight for continued IV fluids and antiemetics. Repeat lab work in am. If patient develops fever or abdominal pain, will need imaging. Patient agreeable with overnight stay. Transferred to floor in satisfactory condition.
[2020-10-04] MEDS ORDERED: Take Home: Ondansetron 4 MG Tab.DIS, 2 Tab Pack PO ONE (20:19)
[2020-10-04] MEDS ORDERED: Ibuprofen 200 MG Tab PO PRN (20:55)
[2020-10-04] MEDS ORDERED: Promethazine 12.5 MG in Sodium Chloride 0.9% 50 ML IV PRN (20:55)
[2020-10-04] MEDS ORDERED: Ondansetron 4 MG/2 ML SDV IV PRN (20:55)
[2020-10-04] MEDS ORDERED: Acetaminophen 325 MG Tab PO PRN (20:55)
[2020-10-04] MEDS ORDERED: Pantoprazole 40 MG Vial IVPUSH SCH (21:00)
[2020-10-04] MEDS ORDERED: 50% Dextrose in Water 50 ML Syringe IV PRN (21:02)
[2020-10-04] MEDS ORDERED: Glucagon,Human Recombinant 1 MG Vial IM PRN (21:02)
[2020-10-04] MEDS: Sodium Chloride 0.9% 1,000 ML IV SCH (21:23)
[2020-10-05] MEDS: Sodium Chloride 0.9% 1,000 ML IV SCH (06:12)
[2020-10-05 07:42] LABS: CHLORIDE,CL 98 mEq/L (98-106); SODIUM,NA 136 mEq/L (136-145)
[2020-10-05] MEDS ORDERED: Insulin Lispro 100 Units/ML 3 ML Vial SUBCUT SCH (08:00)
[2020-10-05 08:08] VITALS: BP 144/89; PULSE 78
--- NOTE | 2020-10-05 08:43 | PCM.DCSUM1 ---
Discharge Summary - Hospital Course HPI Initial Comments: Carmen is a 49 yo female who presents to the ED with c/o nausea, vomiting, and diarrhea. She reports symptoms started at 5 am today. She reports she has vomited 10+ times today and has had 3-4 loose stools. Reports she has been unable to eat or drink all day. She denies any abdominal pain or fever. Does report she had lumbar fusion approximately 2 weeks ago. Has been doing well post operatively. She denies any other symptoms or complaints. - Discharge Data Discharge Date: 10/05/20 Discharge Disposition: Home, Self-Care 01 Condition: Fair - Referral to [facility] Primary Care Physician: May Lindsey PA-C - Discharge Diagnosis/Problem(s) (1) Dehydration SNOMED Code(s): 91354525 ICD Code: E86.0 - DEHYDRATION Status: Resolved Current Visit: No (2) Nausea & vomiting SNOMED Code(s): 76965681 ICD Code: R11.2 - NAUSEA WITH VOMITING, UNSPECIFIED Status: Acute Current Visit: No Qualifiers: Vomiting type: unspecified Vomiting Intractability: non-intractable Qualified Code(s): R11.2 - Nausea with vomiting, unspecified (3) Viral gastroenteritis SNOMED Code(s): 654698942 ICD Code: A08.4 - VIRAL INTESTINAL INFECTION, UNSPECIFIED Status: Acute Current Visit: No - Patient Instructions Diet: Usual Diet as Tolerated Activity: As Tolerated Notify Provider of: Fever, Increased Pain, Nausea and/or Vomiting - Discharge Plan *PRESCRIPTION DRUG MONITORING PROGRAM REVIEWED*: Not Applicable *COPY OF PRESCRIPTION DRUG MONITORING REPORT IN PATIENT MATT: Not Applicable Prescriptions/Med Rec: Ondansetron [Zofran ODT] 4 mg PO Q6H PRN #12 tab.dis PRN Reason: Nausea Home Medications: Home Meds Ibuprofen 200 - 600 mg PO Q6H PRN 07/15/14 [History] Citalopram Hydrobromide [Celexa] 40 mg PO DAILY 06/10/20 [History] sitaGLIPtin Phos/Metformin HCl [Janumet Xr 50-1,000 mg Tablet] 1 tab PO DAILY 06/10/20 [History] Pantoprazole Sodium [Protonix] 40 mg PO DAILY 06/11/20 [History] Ondansetron [Zofran ODT] 4 mg PO Q6H PRN #12 tab.dis 10/05/20 [Rx] Oxygen Therapy Mode: Room Air Patient Handouts: Viral Gastroenteritis, Adult, [id number] Forms: ED Department Discharge Referrals: May Lindsey PA-C [Primary Care Provider] - (1 week) - Discharge Summary/Plan Comment DC Time >30 min.: Yes Discharge Summary/Plan Comment: Will plan for discharge at noon today as long as still tolerating advancement in diet. Encourage patient to push fluids. Prescription for nausea sent to local pharmacy. Labs stable and improved from yesterday. Patient is to follow up with primary provider in 1 week, sooner if any concerns. Will have staple removal at upcoming appointment on with Dr. Viveros. - General Info Date of Service: 10/05/20 Subjective Update: Carmen states she is feeling well this morning. Denies any further vomiting or diarrhea. States she is 100% better than yesterday. Would like to go home today. Functional Status: Reports: Pain Controlled, Tolerating Diet, Ambulating, Urinating - Review of Systems General: Denies: Fever, Chills HEENT: Reports: No Symptoms Pulmonary: Reports: No Symptoms. Denies: Shortness of Breath Cardiovascular: Denies: Chest Pain, Edema Gastrointestinal: Denies: Abdominal Pain, Diarrhea, Hematochezia, Melena, Nausea, Vomiting Genitourinary: Reports: No Symptoms Musculoskeletal: Reports: No Symptoms Skin: Reports: No Symptoms Neurological: Reports: No Symptoms Psychiatric: Reports: No Symptoms - Patient Data Vitals - Most Recent: Last Vital Signs Temp 97.6 F 10/05/20 08:00 Pulse 78 10/05/20 08:00 Resp 16 10/05/20 08:00 BP 144/89 H 10/05/20 08:00 Pulse Ox 99 10/05/20 08:00 Weight - Most Recent: 181 lb I&O - Last 24 hours: Intake & Output 10/04/20 10/05/20 10/05/20 22:59 06:59 14:59 Intake Total 1200 Output Total 200 900 Balance -200 300 Lab Results - Last 24 hrs: Laboratory Results - last 24 hr 10/04/20 10/04/20 10/04/20 Range/Units 18:36 18:39 18:48 WBC 14.2 H (5.0-10.0) 10^3/uL RBC 4.15 (4.00-5.50) 10^6/uL Hgb 13.0 (12.0-16.0) g/dL Hct 37.4 (37.0-47.0) % MCV 90.1 (82.0-94.0) fL MCH 31.3 (27.0-32.0) pg MCHC 34.8 (33.0-38.0) g/dL RDW Coeff of Devan 12.7 (11.0-15.0) % Plt Count 549 H (150-400) 10^3/uL Neut % (Auto) 80.8 (35-85) % Lymph % (Auto) 13.2 (10-55) % [place] % (Auto) 5.6 (0-16) % Eos % (Auto) 0.2 (0-5) % Baso % (Auto) 0.2 (0-3) % Neut # (Auto) 11.47 H (1.80-7.00) 10^3/uL Lymph # (Auto) 1.88 (1.00-4.80) 10^3/uL [place] # (Auto) 0.80 (0.00-0.80) 10^3/uL Eos # (Auto) 0.03 (0.00-0.45) 10^3/uL Baso # (Auto) 0.03 10^3/uL Sodium (136-145) mEq/L Potassium (3.5-5.0) mEq/L Chloride (98-106) mEq/L Carbon Dioxide (21-32) mmol/L BUN (7-18) mg/dL Creatinine (0.6-1.0) mg/dL Est Cr Clr Drug Dosing mL/min Estimated GFR (MDRD) (>=60) mL/min Glucose (75-99) mg/dL Calcium (8.4-10.1) mg/dL Total Bilirubin (0.0-1.0) mg/dL AST (15-37) U/L ALT (12-78) U/L Alkaline Phosphatase (46-116) U/L C-Reactive Protein (0.2-0.8) mg/dL Total Protein (6.4-8.2) g/dL Albumin (3.4-5.0) g/dL Amylase (25-115) U/L Lipase (73-393) U/L Urine Color Yellow (YELLOW) Urine Appearance Turbid (CLEAR) Urine pH 7.0 (4.5-8.0) Ur Specific [place] >= 1.030 H (1.003-1.020) Urine Protein >=300 H (NEGATIVE) mg/dL Urine Glucose (UA) 250 H (NEGATIVE) mg/dL Urine Ketones 40 H (NEGATIVE) mg/dL Urine Occult Blood Trace-intact H (NEGATIVE) Urine Nitrite Negative (NEGATIVE) Urine Bilirubin Negative (NEGATIVE) Urine Urobilinogen 0.2 (0.2-1.0) EU/dL Ur Leukocyte Esterase Negative (NEGATIVE) Urine RBC 0-5 (0-5) /HPF Urine WBC 0-5 (0-5) /HPF Amorphous Sediment Many H (NOT SEEN) /HPF Urine Opiates Screen Negative (NEGATIVE) Ur Oxycodone Screen Negative (NEGATIVE) Urine Methadone Screen Negative (NEGATIVE) Ur Barbiturates Screen Negative (NEGATIVE) U Tricyclic Antidepress Positive H (NEGATIVE) Ur Phencyclidine Scrn Negative (NEGATIVE) Ur Amphetamine Screen Negative (NEGATIVE) U Methamphetamines Scrn Negative (NEGATIVE) Urine MDMA Screen Negative (NEGATIVE) U Benzodiazepines Scrn Negative (NEGATIVE) Urine Cocaine Screen Negative (NEGATIVE) U Marijuana (THC) Screen Positive H (NEGATIVE) SARS CoV-2 RNA Rapid CHERRIE (NEGATIVE) 10/04/20 10/04/20 10/05/20 Range/Units 18:48 18:48 07:28 WBC 13.3 H (5.0-10.0) 10^3/uL RBC 3.94 L (4.00-5.50) 10^6/uL Hgb 12.3 (12.0-16.0) g/dL Hct 36.2 L (37.0-47.0) % MCV 91.9 (82.0-94.0) fL MCH 31.2 (27.0-32.0) pg MCHC 34.0 (33.0-38.0) g/dL RDW Coeff of Devan 12.9 (11.0-15.0) % Plt Count 529 H (150-400) 10^3/uL Neut % (Auto) 69.9 (35-85) % Lymph % (Auto) 20.6 (10-55) % [place] % (Auto) 7.9 (0-16) % Eos % (Auto) 1.4 (0-5) % Baso % (Auto) 0.2 (0-3) % Neut # (Auto) 9.27 H (1.80-7.00) 10^3/uL Lymph # (Auto) 2.74 (1.00-4.80) 10^3/uL [place] # (Auto) 1.05 H (0.00-0.80) 10^3/uL Eos # (Auto) 0.19 (0.00-0.45) 10^3/uL Baso # (Auto) 0.03 10^3/uL Sodium 134 L (136-145) mEq/L Potassium 4.3 (3.5-5.0) mEq/L Chloride 94 L (98-106) mEq/L Carbon Dioxide 27 (21-32) mmol/L BUN 9 (7-18) mg/dL Creatinine 0.8 (0.6-1.0) mg/dL Est Cr Clr Drug Dosing 74.86 mL/min Estimated GFR (MDRD) > 60 (>=60) mL/min Glucose 305 H* (75-99) mg/dL Calcium 9.9 (8.4-10.1) mg/dL Total Bilirubin 0.6 (0.0-1.0) mg/dL AST 10 L (15-37) U/L ALT 15 (12-78) U/L Alkaline Phosphatase 129 H (46-116) U/L C-Reactive Protein 5.3 H (0.2-0.8) mg/dL Total Protein 8.5 H (6.4-8.2) g/dL Albumin 3.5 (3.4-5.0) g/dL Amylase 64 (25-115) U/L Lipase 82 (73-393) U/L Urine Color (YELLOW) Urine Appearance (CLEAR) Urine pH (4.5-8.0) Ur Specific Sullivan (1.003-1.020) Urine Protein (NEGATIVE) mg/dL Urine Glucose (UA) (NEGATIVE) mg/dL Urine Ketones (NEGATIVE) mg/dL Urine Occult Blood (NEGATIVE) Urine Nitrite (NEGATIVE) Urine Bilirubin (NEGATIVE) Urine Urobilinogen (0.2-1.0) EU/dL Ur Leukocyte Esterase (NEGATIVE) Urine RBC (0-5) /HPF Urine WBC (0-5) /HPF Amorphous Sediment (NOT SEEN) /HPF Urine Opiates Screen (NEGATIVE) Ur Oxycodone Screen (NEGATIVE) Urine Methadone Screen (NEGATIVE) Ur Barbiturates Screen (NEGATIVE) U Tricyclic Antidepress (NEGATIVE) Ur Phencyclidine Scrn (NEGATIVE) Ur Amphetamine Screen (NEGATIVE) U Methamphetamines Scrn (NEGATIVE) Urine MDMA Screen (NEGATIVE) U Benzodiazepines Scrn (NEGATIVE) Urine Cocaine Screen (NEGATIVE) U Marijuana (THC) Screen (NEGATIVE) SARS CoV-2 RNA Rapid CHERRIE Negative (NEGATIVE) 10/05/20 Range/Units 07:28 WBC (5.0-10.0) 10^3/uL RBC (4.00-5.50) 10^6/uL Hgb (12.0-16.0) g/dL Hct (37.0-47.0) % MCV (82.0-94.0) fL MCH (27.0-32.0) pg MCHC (33.0-38.0) g/dL RDW Coeff of Devan (11.0-15.0) % Plt Count (150-400) 10^3/uL Neut % (Auto) (35-85) % Lymph % (Auto) (10-55) % [place] % (Auto) (0-16) % Eos % (Auto) (0-5) % Baso % (Auto) (0-3) % Neut # (Auto) (1.80-7.00) 10^3/uL Lymph # (Auto) (1.00-4.80) 10^3/uL [place] # (Auto) (0.00-0.80) 10^3/uL Eos # (Auto) (0.00-0.45) 10^3/uL Baso # (Auto) 10^3/uL Sodium 136 (136-145) mEq/L Potassium 4.2 (3.5-5.0) mEq/L Chloride 98 (98-106) mEq/L Carbon Dioxide 28 (21-32) mmol/L BUN 7 (7-18) mg/dL Creatinine 0.8 (0.6-1.0) mg/dL Est Cr Clr Drug Dosing 74.86 mL/min Estimated GFR (MDRD) > 60 (>=60) mL/min Glucose 236 H (75-99) mg/dL Calcium 9.3 (8.4-10.1) mg/dL Total Bilirubin (0.0-1.0) mg/dL AST (15-37) U/L ALT (12-78) U/L Alkaline Phosphatase (46-116) U/L C-Reactive Protein 3.9 H (0.2-0.8) mg/dL Total Protein (6.4-8.2) g/dL Albumin (3.4-5.0) g/dL Amylase (25-115) U/L Lipase (73-393) U/L Urine Color (YELLOW) Urine Appearance (CLEAR) Urine pH (4.5-8.0) Ur Specific [place] (1.003-1.020) Urine Protein (NEGATIVE) mg/dL Urine Glucose (UA) (NEGATIVE) mg/dL Urine Ketones (NEGATIVE) mg/dL Urine Occult Blood (NEGATIVE) Urine Nitrite (NEGATIVE) Urine Bilirubin (NEGATIVE) Urine Urobilinogen (0.2-1.0) EU/dL Ur Leukocyte Esterase (NEGATIVE) Urine RBC (0-5) /HPF Urine WBC (0-5) /HPF Amorphous Sediment (NOT SEEN) /HPF Urine Opiates Screen (NEGATIVE) Ur Oxycodone Screen (NEGATIVE) Urine Methadone Screen (NEGATIVE) Ur Barbiturates Screen (NEGATIVE) U Tricyclic Antidepress (NEGATIVE) Ur Phencyclidine Scrn (NEGATIVE) Ur Amphetamine Screen (NEGATIVE) U Methamphetamines Scrn (NEGATIVE) Urine MDMA Screen (NEGATIVE) U Benzodiazepines Scrn (NEGATIVE) Urine Cocaine Screen (NEGATIVE) U Marijuana (THC) Screen (NEGATIVE) SARS CoV-2 RNA Rapid CHERRIE (NEGATIVE) Med Orders - Current: Current Medications Acetaminophen (Tylenol) 650 mg PO Q4H PRN PRN Reason: Pain (Mild 1-3)/fever Dextrose/Water (Dextrose 50% In Water) 50 ml IV ASDIRECTED PRN PRN Reason: Hypoglycemia Glucagon (Glucagen) 1 mg IM ASDIRECTED PRN PRN Reason: Hypoglycemia Sodium Chloride (Normal Saline) 1,000 mls @ 125 mls/hr IV ASDIRECTED MIHIR Last Admin: 10/05/20 06:12 Dose: 125 mls/hr Documented by: Promethazine HCl 12.5 mg/ (Sodium Chloride) 50.5 mls @ 100 mls/hr IV Q6H PRN PRN Reason: Nausea/Vomiting Last Admin: 10/04/20 21:36 Dose: 100 mls/hr Documented by: Ibuprofen (Motrin) 600 mg PO Q6H PRN PRN Reason: Pain (mild 1-3) Insulin Human Lispro (Humalog) 0 unit SUBCUT WITHMEALSANDBED [facility]; Protocol Last Admin: 10/05/20 08:15 Dose: 4 units Documented by: Ondansetron HCl (Zofran) 4 mg IV Q6H PRN PRN Reason: Nausea/Vomiting Pantoprazole Sodium (Protonix Iv) 40 mg IVPUSH Q24H [facility] Last Admin: 10/04/20 21:26 Dose: 40 mg Documented by: Discontinued Medications Lactated Ringer's (Ringers, Lactated) 1,000 mls @ 999 mls/hr IV .BOLUS ONE Stop: 10/04/20 20:09 Last Admin: 10/04/20 19:26 Dose: Not Given Documented by: Sodium Chloride (Normal Saline) 1,000 mls @ 999 mls/hr IV .BOLUS ONE Stop: 10/04/20 20:10 Last Admin: 10/04/20 19:24 Dose: 999 mls/hr Documented by: Ondansetron HCl (Zofran) 4 mg IVPUSH STAT STA Stop: 10/04/20 19:10 Last Admin: 10/04/20 19:23 Dose: 4 mg Documented by: Ondansetron HCl (Take Home: Ondansetron Odt 4 Mg, 2 Tab Pack) 2 packet PO ONETIME ONE Stop: 10/04/20 20:20 Last Admin: 10/04/20 20:30 Dose: Not Given Documented by: - Exam General: Reports: Alert, Oriented, Cooperative, No Acute Distress Lungs: Reports: Wheezing (bilateral bases) Cardiovascular: Reports: Regular Rate, Regular Rhythm, No Murmurs GI/Abdominal Exam: Normal Bowel Sounds, Soft, Non-Tender, No Organomegaly, No Distention, No Mass Back Exam: Reports: Other (low back incision looks excellent, healing well. ada still in place) Extremities: Normal Inspection, No Pedal Edema Skin: Reports: Warm, Dry, Intact
[2020-10-05] MEDS ORDERED: Ondansetron 4 MG Tab.DIS PO PRN (09:48)
== END 2020-10-05 11:38 | disposition home or self-care (01) ==
LOC: CC.ED 18:16 → CC.MS 20:33 → CC.ED 20:34 → CC.MS 20:53 → UNDOADMOB 20:53
PROVIDERS: ADMIT Nurse Practitioner Family; ATTEND Family Medicine
DX: R11.2 Nausea with vomiting, unspecified (principal); R19.7 Diarrhea, unspecified; E11.9 Type 2 diabetes mellitus without complications; E86.0 Dehydration; D72.829 Elevated white blood cell count, unspecified; A08.4 Viral intestinal infection, unspecified; Z20.822 Contact with and (suspected) exposure to COVID-19; Z88.8 Allergy status to other drugs, medicaments and biological substances; Z79.899 Other long term (current) drug therapy; Z98.890 Other specified postprocedural states
CPT/HCPCS: 36415; 80048; 80053; 80305; 81001; 82150; 83690; 85025; 86140; 87635; 96361; 96365; 96374; 96375; 99284; C9113; G0378; J1815; J2405; J2550; J7030; U0002

== ENCOUNTER 2021-01-29 15:43 | Emergency (ER) | payer BC ==
--- NOTE | 2021-01-29 16:06 | EDM.PDOC ---
ED HPI GENERAL MEDICAL PROBLEM - General Time Seen by Provider: 01/29/21 15:51 Source of Information: Reports: Patient History Limitations: Reports: No Limitations - History of Present Illness INITIAL COMMENTS - FREE TEXT/NARRATIVE: This patient is a 50 year old female that presents to the ER. Patient reports that yesterday morning she was walking in parking lot and tripped and fell. She reports landing and hitting the right side of her eye glasses she was wearing. Patient reports pain, swelling, tenderness, eccyhmosis to the right inferior orbit. She reports right lower lip pain, swelling, ecchymosis, Patient requests an xray. Patient reports headache frontal. Denies loc, n, v, vision changes. Alert and oriented. Onset Date: 01/28/21 Onset Time: 10:30 Location: Reports: Head, Face Front/Back Body Image: 1 - pain, tenderness, eccyhmosis Severity: Mild Improves with: Reports: None Worsens with: Reports: None Associated Symptoms: Reports: No Other Symptoms, Headaches. Denies: Confusion, Chest Pain, Cough, cough w sputum, Diaphoresis, Fever/Chills, Loss of Appetite, Malaise, Nausea/Vomiting, Rash, Seizure, Shortness of Breath, Syncope, Weakness Right Lower Eye Pain Score (Numeric/FACES): 7 - Related Data Allergies Allergy/AdvReac Type Severity Reaction Status Date / Time morphine Allergy Diaphoresis Verified 01/29/21 16:31 naproxen Allergy Hives Verified 01/29/21 16:31 sucralfate [From Carafate] Allergy Cannot Verified 01/29/21 16:31 Remember Home Meds: Home Meds Ibuprofen 200 - 600 mg PO Q6H PRN 07/15/14 [History] Citalopram Hydrobromide [Celexa] 40 mg PO DAILY 06/10/20 [History] sitaGLIPtin Phos/Metformin HCl [Janumet Xr 50-1,000 mg Tablet] 1 tab PO DAILY 06/10/20 [History] Pantoprazole Sodium [Protonix] 40 mg PO DAILY 06/11/20 [History] Ondansetron [Zofran ODT] 4 mg PO Q6H PRN #12 tab.dis 10/05/20 [Rx] 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 Lip pain, tenderness) Respiratory: Reports: No Symptoms Cardiovascular: Reports: No Symptoms Endocrine: Reports: No Symptoms GI/Abdominal: Reports: No Symptoms : Reports: No Symptoms Musculoskeletal: Reports: No Symptoms Skin: Reports: No Symptoms Neurological: Reports: Headache Psychiatric: Reports: No Symptoms Hematologic/Lymphatic: Reports: No Symptoms Immunologic: Reports: No Symptoms ED EXAM, HEAD INJURY - Physical Exam Exam: See Below Exam Limited By: No Limitations General Appearance: Alert, WD/WN, No Apparent Distress Head: Atraumatic, Normocephalic, Facial Ecchymosis (inferior orbital), Facial Swelling (right inferior orbtial tenderness, pain, swelling, ecchymosis. ), Facial Tenderness (inferior orbit). No: Scalp Lacerations, Scalp Swelling, Scalp Abrasions, Scalp Ecchymosis, Scalp Hematoma, Scalp Tenderness, Active Bleeding, Ricketts's Sign, Flap, Facial Abrasions, Facial Lacerations, Sinus Tenderness, Raccoon Eyes Nexus Criteria: No: Posterior, Midline Cervical Tenderness, Evidence of Intoxication, Altered Level of Consciousness, Focal Neurological Deficit, Painful Distraction Injuries Eyes: Bilateral Eye: EOMI, Normal Inspection, PERRL Ears: Normal External Exam, Normal Canal, Hearing Grossly Normal, Normal TMs Nose: Normal Inspection, Normal Mucousa, No Blood Throat/Mouth: Normal Inspection, Normal Teeth, Normal Gums, Normal Oropharynx, Normal Voice, No Airway Compromise, Lip Swelling (lower right lip swelling, eccyhmosis. small abrasion. ) Neck: Non-Tender, Full Range of Motion, Normal Alignment, Normal Inspection Respiratory: No Respiratory Distress, Lungs Clear, Normal Breath Sounds, No Accessory Muscle Use Cardiovascular: Normal Peripheral Pulses, Regular Rate, Rhythm, No Edema, No Gallop, No JVD, No Murmur, No Rub (Female) Exam: Deferred Rectal (Female) Exam: Deferred Back Exam: Normal Inspection, Full Range of Motion Extremities: Normal Inspection, Normal Range of Motion, Non-Tender, No Pedal Edema, Normal Capillary Refill Neurologic: Alert, Normal Mood/Affect, Oriented x 3 Skin: Normal Color, Warm/Dry, Ecchymosis (right inferior orbit, right lower lip) - [place] Coma Score Best Eye Response ([place]): (4) Open Spontaneously Best Verbal Response ([place]): (5) Oriented Best Motor Response ([place]): (6) Obeys Commands Course - Vital Signs Last Recorded V/S: Last Vital Signs Temp 98.5 F 01/29/21 15:46 Pulse 81 01/29/21 15:46 Resp 20 01/29/21 15:46 BP 120/68 01/29/21 15:46 Pulse Ox 97 01/29/21 15:46 - Orders/Labs/Meds Orders: Active Orders 24 hr Category Date Time Status Head wo Cont [CT] Stat Exams 01/29/21 16:00 Taken Max Facial Sinus wo Cont [CT] Stat Exams 01/29/21 16:00 Taken - Radiology Interpretation Free Text/Narrative:: Head/Facial CT: No acute findings CT Results Date: 01/29/21 CT Results Time: 18:20 - Re-Assessments/Exams Free Text/Narrative Re-Assessment/Exam: 01/29/21 16:09 Patient does not want to stay for CT results, she asks if these can be called to her. Will do that. 01/29/21 18:29 I called patient with results. Departure - Departure Time of Disposition: 16:18 Disposition: Home, Self-Care 01 Condition: Fair Clinical Impression: Orbital contusion Qualifiers: Encounter type: initial encounter Laterality: right Qualified Code(s): S05.11XA - Contusion of eyeball and orbital tissues, right eye, initial encounter Contusion, lip Qualifiers: Encounter type: initial encounter Qualified Code(s): S00.531A - Contusion of lip, initial encounter - Discharge Information *PRESCRIPTION DRUG MONITORING PROGRAM REVIEWED*: Not Applicable *COPY OF PRESCRIPTION DRUG MONITORING REPORT IN PATIENT MATT: Not Applicable Instructions: Facial or Scalp Contusion, [id number] Forms: ED Department Discharge Additional Instructions: Followup with your primary care provider as needed Return to the ER for worsening of condition or any emergent concerns Rest Ice Tylenol for pain as needed Sepsis Event Note (ED) - Focused Exam Vital Signs: Vital Signs Temp Pulse Resp BP Pulse Ox 01/29/21 15:46 98.5 F 81 20 120/68 97 - My Orders Last 24 Hours: My Active Orders 01/29/21 16:00 Head wo Cont [CT] Stat Max Facial Sinus wo Cont [CT] Stat - Assessment/Plan Last 24 Hours: My Active Orders 01/29/21 16:00 Head wo Cont [CT] Stat Max Facial Sinus wo Cont [CT] Stat Plan: PLEASE SEE RN NOTE FOR PFSH
[2021-01-29 16:37] VITALS: BP 120/68; PULSE 81
== END 2021-01-29 16:30 | disposition home or self-care (01) ==
LOC: CC.ED 15:43
DX: S05.11XA Contusion of eyeball and orbital tissues, right eye, initial encounter (principal); S00.531A Contusion of lip, initial encounter; E11.9 Type 2 diabetes mellitus without complications; Z79.84 Long term (current) use of oral hypoglycemic drugs; Z79.899 Other long term (current) drug therapy; Z88.5 Allergy status to narcotic agent; Z88.8 Allergy status to other drugs, medicaments and biological substances; W01.10XA Fall on same level from slipping, tripping and stumbling with subsequent striking against unspecified object, initial encounter
CPT/HCPCS: 70450; 70486; 99283-25

== ENCOUNTER 2021-02-07 19:55 | Inpatient (IN) | payer BC ==
[2021-02-07] MEDS ORDERED: Lactated Ringers 1,000 ML IV ONE (20:31)
[2021-02-07] MEDS ORDERED: Ondansetron 4 MG/2 ML SDV IVPUSH STA (20:31)
--- NOTE | 2021-02-07 20:44 | EDM.PDOC ---
ED HPI GENERAL MEDICAL PROBLEM - General Chief Complaint: Gastrointestinal Problem Stated Complaint: nausea/vomiting/diarrhea Time Seen by Provider: 02/07/21 20:24 Source of Information: Reports: Patient History Limitations: Reports: No Limitations - History of Present Illness INITIAL COMMENTS - FREE TEXT/NARRATIVE: Carmen is a 50 yo female who presents to the ED with c/o nausea, vomiting, diarrhea and abdominal pain. She reports onset of symptoms this morning. Reports she has not been able to eat or drink anything all day today. Reports she has stooled and vomited "many times" today. She reports mid abdominal pain. Denies any fever but has felt chilled. Feels clammy and chilled prior to and after emesis. Does also report her chest feels tight. Has had occasional cough, as well as slightly increased shortness of breath. Patient reports she has had covid in the past and is also vaccinated. Onset: Today Associated Symptoms: Reports: Cough, Diaphoresis, Fever/Chills, Loss of Appetite, Malaise, Nausea/Vomiting, Shortness of Breath, Weakness. Denies: Confusion, Chest Pain, cough w sputum, Headaches Abdomen Pain Score (Numeric/FACES): 5 - Related Data Allergies Allergy/AdvReac Type Severity Reaction Status Date / Time morphine Allergy Diaphoresis Verified 02/07/21 20:16 naproxen Allergy Hives Verified 02/07/21 20:16 sucralfate [From Carafate] Allergy Cannot Verified 02/07/21 20:16 Remember Home Meds: Home Meds Ibuprofen 200 - 600 mg PO Q6H PRN 07/15/14 [History] Citalopram Hydrobromide [Celexa] 40 mg PO DAILY 06/10/20 [History] sitaGLIPtin Phos/Metformin HCl [Janumet Xr 50-1,000 mg Tablet] 1 tab PO DAILY 06/10/20 [History] busPIRone [Buspar] 5 mg PO BID 02/08/21 [History] Past Medical History Other HEENT History: ORBITAL CONTUSION. 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: Other (See Below) Other VOLUNTEER RECRUITER History: partial hysterectomy Endocrine/Metabolic History: Reports: Diabetes, Type II - Past Surgical History Musculoskeletal Surgical History: Reports: Other (See Below) Other Musculoskeletal Surgeries/Procedures:: back surgery Social & Family History - Family History Family Medical History: No Pertinent Family History - Tobacco Use Tobacco Use Status *Q: Current Every Day Tobacco User Years of Tobacco use: 35 Packs/Tins Daily: 1 - Caffeine Use Caffeine Use: Reports: Coffee - Recreational Drug Use Recreational Drug Use: Yes Recreational Drug Type: Reports: Marijuana/Hashish Recreational Drug Use Frequency: Daily - Living Situation & Occupation Living situation: Reports: ED ROS GENERAL - Review of Systems Review Of Systems: See Below Constitutional: Reports: Chills, Malaise, Weakness, Fatigue, Decreased Appetite. Denies: Fever HEENT: Reports: No Symptoms Respiratory: Reports: Shortness of Breath, Cough. Denies: Pleuritic Chest Pain, Sputum, Hemoptysis Cardiovascular: Reports: Dyspnea on Exertion. Denies: Chest Pain, Edema Endocrine: Reports: High Glucose GI/Abdominal: Reports: Abdominal Pain, Diarrhea, Decreased Appetite, Nausea, Vomiting. Denies: Black Stool, Bloody Stool, Hematemesis, Hematochezia, Melena : Reports: No Symptoms Musculoskeletal: Reports: No Symptoms Skin: Reports: No Symptoms Neurological: Reports: No Symptoms Psychiatric: Reports: No Symptoms Hematologic/Lymphatic: Reports: No Symptoms Immunologic: Reports: No Symptoms ED EXAM, GI/ABD - Physical Exam Exam: See Below Exam Limited By: No Limitations General Appearance: Alert, WD/WN, No Apparent Distress Throat/Mouth: Other (Dry mucous membranes) Head: Atraumatic, Normocephalic Neck: Normal Inspection, Supple, Non-Tender, Full Range of Motion Respiratory/Chest: No Respiratory Distress, No Accessory Muscle Use, Decreased Breath Sounds, Wheezing Cardiovascular: Normal Peripheral Pulses, No Murmur, Tachycardia GI/Abdominal Exam: Normal Bowel Sounds, Soft, No Distention, Tender (periumbilical and RLQ). No: Guarding, Rigid, Rebound Back Exam: Normal Inspection, Full Range of Motion, NT Extremities: Normal Inspection, Normal Range of Motion, Non-Tender, Normal Capillary Refill, No Pedal Edema Neurological: Alert, Oriented, CN II-XII Intact, Normal Cognition, Normal Gait, Normal Reflexes, No Motor/Sensory Deficits Psychiatric: Normal Affect, Normal Mood Skin Exam: Warm, Dry, Intact, Normal Color, No Rash Lymphatic: No Adenopathy Course - Vital Signs Last Recorded V/S: Last Vital Signs Temp 98.0 F 02/08/21 11:45 Pulse 98 02/08/21 11:45 Resp 16 02/08/21 11:45 BP 137/88 02/08/21 11:45 Pulse Ox 96 02/08/21 11:45 - Orders/Labs/Meds Orders: Active Orders 24 hr Category Date Time Status Abdomen Pelvis w Cont [CT] Stat Exams 02/07/21 20:37 Taken Chest 2V [CR] Stat Exams 02/07/21 20:38 Taken Labs: Laboratory Tests 02/07/21 02/07/21 02/07/21 Range/Units 20:12 20:12 20:23 WBC 19.8 H (4.0-11.0) 10^3/uL RBC 5.06 (4.00-5.50) x10^6/uL Hgb 15.2 (12.0-16.0) g/dL Hct 45.0 (37.0-47.0) % MCV 88.9 (83.0-97.0) fL MCH 30.0 (27.0-32.0) pg MCHC 33.8 (32.0-36.0) g/dL RDW Coeff of Devan 13.1 (11.0-15.0) % Plt Count 427 H (150-400) 10^3/uL Immature Gran % (Auto) 0.2 (0.0-4.9) % Neut % (Auto) 89.6 H (41-71) % Lymph % (Auto) 7.5 L (24-44) % Kinney % (Auto) 2.4 (0-10) % Eos % (Auto) 0.1 (0-6) % Baso % (Auto) 0.2 (0-1) % Neut # (Auto) 17.74 H (1.80-8.00) x10^3/uL Lymph # (Auto) 1.48 (0.60-5.00) 10^3/uL Kinney # (Auto) 0.48 (0.00-1.50) 10^3/uL Eos # (Auto) 0.01 (0.00-1.50) 10^3/uL Baso # (Auto) 0.04 (0.00-0.50) 10^3/uL Immature Gran # (Auto) 0.03 (0.00-0.49) 10^3/uL Sodium 137 (136-145) mEq/L Potassium 4.0 (3.5-5.0) mEq/L Chloride 96 L (98-106) mEq/L Carbon Dioxide 25 (21-32) mmol/L BUN 14 D (7-18) mg/dL Creatinine 1.2 H (0.6-1.0) mg/dL Est Cr Clr Drug Dosing 51.34 mL/min Estimated GFR (MDRD) 47 L (>=60) mL/min Glucose 324 H* D (75-99) mg/dL POC Glucose 336 H (75-105) mg/dL Calcium 9.1 (8.4-10.1) mg/dL Total Bilirubin 0.5 (0.0-1.0) mg/dL AST 16 (15-37) U/L ALT 15 (12-78) U/L Alkaline Phosphatase 118 H (46-116) U/L C-Reactive Protein 0.8 (0.2-0.8) mg/dL Total Protein 8.0 (6.4-8.2) g/dL Albumin 3.7 (3.4-5.0) g/dL Amylase 65 (25-115) U/L Lipase 75 (73-393) U/L Urine Color (YELLOW) Urine Appearance (CLEAR) Urine pH (4.5-8.0) Ur Specific [place] (1.003-1.020) Urine Protein (NEGATIVE) mg/dL Urine Glucose (UA) (NEGATIVE) mg/dL Urine Ketones (NEGATIVE) mg/dL Urine Occult Blood (NEGATIVE) Urine Nitrite (NEGATIVE) Urine Bilirubin (NEGATIVE) Urine Urobilinogen (0.2-1.0) EU/dL Ur Leukocyte Esterase (NEGATIVE) Urine RBC (0-5) /HPF Urine WBC (0-5) /HPF Ur Epithelial Cells (NOT SEEN) /HPF Urine Mucus (NOT SEEN) /HPF 02/07/21 Range/Units 21:30 WBC (4.0-11.0) 10^3/uL RBC (4.00-5.50) x10^6/uL Hgb (12.0-16.0) g/dL Hct (37.0-47.0) % MCV (83.0-97.0) fL MCH (27.0-32.0) pg MCHC (32.0-36.0) g/dL RDW Coeff of Devan (11.0-15.0) % Plt Count (150-400) 10^3/uL Immature Gran % (Auto) (0.0-4.9) % Neut % (Auto) (41-71) % Lymph % (Auto) (24-44) % Kinney % (Auto) (0-10) % Eos % (Auto) (0-6) % Baso % (Auto) (0-1) % Neut # (Auto) (1.80-8.00) x10^3/uL Lymph # (Auto) (0.60-5.00) 10^3/uL Kinney # (Auto) (0.00-1.50) 10^3/uL Eos # (Auto) (0.00-1.50) 10^3/uL Baso # (Auto) (0.00-0.50) 10^3/uL Immature Gran # (Auto) (0.00-0.49) 10^3/uL Sodium (136-145) mEq/L Potassium (3.5-5.0) mEq/L Chloride (98-106) mEq/L Carbon Dioxide (21-32) mmol/L BUN (7-18) mg/dL Creatinine (0.6-1.0) mg/dL Est Cr Clr Drug Dosing mL/min Estimated GFR (MDRD) (>=60) mL/min Glucose (75-99) mg/dL POC Glucose (75-105) mg/dL Calcium (8.4-10.1) mg/dL Total Bilirubin (0.0-1.0) mg/dL AST (15-37) U/L ALT (12-78) U/L Alkaline Phosphatase (46-116) U/L C-Reactive Protein (0.2-0.8) mg/dL Total Protein (6.4-8.2) g/dL Albumin (3.4-5.0) g/dL Amylase (25-115) U/L Lipase (73-393) U/L Urine Color Yellow (YELLOW) Urine Appearance Slightly cloudy (CLEAR) Urine pH 7.0 (4.5-8.0) Ur Specific [place] 1.025 H (1.003-1.020) Urine Protein 100 H (NEGATIVE) mg/dL Urine Glucose (UA) 500 H (NEGATIVE) mg/dL Urine Ketones Negative (NEGATIVE) mg/dL Urine Occult Blood Trace-intact H (NEGATIVE) Urine Nitrite Negative (NEGATIVE) Urine Bilirubin Negative (NEGATIVE) Urine Urobilinogen 0.2 (0.2-1.0) EU/dL Ur Leukocyte Esterase Negative (NEGATIVE) Urine RBC 0-5 (0-5) /HPF Urine WBC Not seen (0-5) /HPF Ur Epithelial Cells Few H (NOT SEEN) /HPF Urine Mucus Few H (NOT SEEN) /HPF Meds: Medications Discontinued Medications Generic Name Dose Route Start Last Admin Trade Name Freq PRN Reason Stop Dose Admin Acetaminophen 650 mg 02/07/21 22:51 Acetaminophen 325 Mg Tab PO Q4H PRN Pain (Mild 1-3)/fever Albuterol/Ipratropium 3 ml 02/08/21 08:00 02/08/21 11:45 Albuterol/Ipratropium 3.0-0.5 Mg/3 Ml Neb Soln NEB Not Given QIDRT MIHIR Albuterol/Ipratropium Confirm 02/08/21 04:20 02/08/21 04:18 Albuterol/Ipratropium 3.0-0.5 Mg/3 Ml Neb Soln Administered 02/08/21 04:21 Not Given Dose 3 ml .ROUTE .STK-MED ONE Albuterol/Ipratropium 3 ml 02/08/21 06:02 Albuterol/Ipratropium 3.0-0.5 Mg/3 Ml Neb Soln NEB Q4H PRN Dyspnea Ceftriaxone Sodium 1 gm 02/07/21 23:00 02/07/21 23:28 Ceftriaxone 1 Gm Vial IVPUSH 1 gm Q24H MIHIR Administration Ceftriaxone Sodium 1 gm 02/08/21 20:00 Ceftriaxone 1 Gm Vial IVPUSH BEDTIME MIHIR Citalopram Hydrobromide 40 mg 02/08/21 08:00 02/08/21 07:36 Citalopram 10 Mg Tab PO 40 mg DAILY MIHIR Administration Dextrose/Water 50 ml 02/07/21 22:51 50% Dextrose In Water 50 Ml Syringe IVPUSH ASDIRECTED PRN Hypoglycemia Enoxaparin Sodium 40 mg 02/08/21 08:00 02/08/21 07:39 Enoxaparin 40 Mg/0.4 Ml Syringe SUBCUT 40 mg DAILY MIHIR Administration Glucagon 1 mg 02/07/21 22:51 Glucagon,Human Recombinant 1 Mg Vial IM ASDIRECTED PRN Hypoglycemia Lactated Ringer's 1,000 mls @ 999 mls/hr 02/07/21 20:31 02/07/21 20:49 Ringers, Lactated IV 02/07/21 21:31 999 mls/hr .BOLUS ONE Administration Sodium Chloride 1,000 mls @ 75 mls/hr 02/07/21 22:51 02/07/21 23:30 Normal Saline IV 02/08/21 12:10 75 mls/hr ASDIRECTED MIHIR Administration Azithromycin 500 mg/ Sodium 250 mls @ 250 mls/hr 02/07/21 23:30 02/07/21 23:28 Chloride IV 250 mls/hr Q24H MIHIR Administration Azithromycin 500 mg/ Sodium 250 mls @ 250 mls/hr 02/08/21 20:00 Chloride IV BEDTIME MIHIR Insulin Human Lispro 0 unit 02/08/21 08:00 02/08/21 11:45 Insulin Lispro 100 Units/Ml 3 Ml Vial SUBCUT Not Given [facility] Protocol Iopamidol 100 ml 02/07/21 21:00 02/07/21 21:31 Iopamidol 755 Mg/Ml 100 Ml Bottle IVPUSH 02/07/21 21:01 100 ml ONETIME ONE Administration Methylprednisolone Sodium Succinate 62.5 mg 02/07/21 23:00 02/07/21 23:29 Methylprednisolone Sodium Succinate 125 Mg/2 Ml Sdv IVPUSH 62.5 mg Q24H MIHIR Administration Methylprednisolone Sodium Succinate 62.5 mg 02/08/21 20:00 Methylprednisolone Sodium Succinate 125 Mg/2 Ml Sdv IVPUSH BEDTIME MIHIR Ondansetron HCl 4 mg 02/07/21 20:31 02/07/21 20:46 Ondansetron 4 Mg/2 Ml Sdv IVPUSH 02/07/21 20:32 4 mg STAT STA Administration Ondansetron HCl 4 mg 02/07/21 22:51 02/07/21 23:52 Ondansetron 4 Mg/2 Ml Sdv IV 4 mg Q6H PRN Administration Nausea/Vomiting Temazepam 15 mg 02/07/21 22:51 Temazepam 15 Mg Cap PO BEDTIME PRN Sleep - Re-Assessments/Exams Free Text/Narrative Re-Assessment/Exam: 02/07/21 20:43 Discussed lab results with patent and spouse. WBC count elevated with left shift. Will proceed with CT abd/pelvis as well as CXR. Creatinine elevated to 1.2 with GFT 47. Labs otherwise relatively stable. Will give IVF as well as Zofran to help with nausea/vomiting. Departure - Departure Time of Disposition: 22:18 Disposition: Admitted As Inpatient 64 Condition: Fair Clinical Impression: Atypical pneumonia, Adrenal nodule, Dehydration Nausea & vomiting Qualifiers: Vomiting type: unspecified Vomiting Intractability: non-intractable Qualified Code(s): R11.2 - Nausea with vomiting, unspecified Uncontrolled diabetes mellitus Qualifiers: Diabetes mellitus type: type 2 Glycemic state: with hyperglycemia Qualified Code(s): E11.65 - Type 2 diabetes mellitus with hyperglycemia - Discharge Information *PRESCRIPTION DRUG MONITORING PROGRAM REVIEWED*: Not Applicable *COPY OF PRESCRIPTION DRUG MONITORING REPORT IN PATIENT MATT: Not Applicable Sepsis Event Note (ED) - Evaluation Sepsis Screening Result: No Definite Risk - Problem List & Annotations (1) Atypical pneumonia SNOMED Code(s): 616165107 Code(s): J18.9 - PNEUMONIA, UNSPECIFIED ORGANISM Status: Acute (2) Adrenal nodule SNOMED Code(s): 004528062 Code(s): E27.8 - OTHER SPECIFIED DISORDERS OF ADRENAL GLAND Status: Acute (3) Dehydration SNOMED Code(s): 59095235 Code(s): E86.0 - DEHYDRATION Status: Acute - Problem List Review Problem List Initiated/Reviewed/Updated: Yes - My Orders Last 24 Hours: My Active Orders 02/07/21 20:37 Abdomen Pelvis w Cont [CT] Stat 02/07/21 20:38 Chest 2V [CR] Stat - Assessment/Plan Admission H&P: Please use this note as an admission H&P Last 24 Hours: My Active Orders 02/07/21 20:37 Abdomen Pelvis w Cont [CT] Stat 02/07/21 20:38 Chest 2V [CR] Stat Assessment:: Atypical Pneumonia vs. interstitial edema Adrenal Nodule Dehydration Nausea/Vomiting Plan: Admit to acute with telemetry Will continue with IVF x 1 L as patient unable to tolerate PO intake. Has had active emesis in ED. Start IV antibiotics and steroids for atypical pneumonia. Xray does reveal hazy peripheral interstitial opacities in BLL. Given leukocytosis and no s/s of fluid overload, will treat as atypical pneumonia, although she does have small bilateral pleural effusions. Will monitor. Recommend further workup as outpatient for right adrenal nodule Patient transferred to floor in stable condition.
[2021-02-07] MEDS ORDERED: Iopamidol 755 Mg/ML 100 ML Bottle IVPUSH ONE (21:00)
[2021-02-07] MEDS ORDERED: Ondansetron 4 MG/2 ML SDV IV PRN (22:51)
[2021-02-07] MEDS ORDERED: 50% Dextrose in Water 50 ML Syringe IVPUSH PRN (22:51)
[2021-02-07] MEDS ORDERED: Temazepam 15 MG Cap PO PRN (22:51)
[2021-02-07] MEDS ORDERED: Acetaminophen 325 MG Tab PO PRN (22:51)
[2021-02-07] MEDS ORDERED: Glucagon,Human Recombinant 1 MG Vial IM PRN (22:51)
[2021-02-07] MEDS ORDERED: Sodium Chloride 0.9% 1,000 ML IV SCH (22:51)
[2021-02-07] MEDS ORDERED: cefTRIAXone 1 GM Vial IVPUSH SCH (23:00)
[2021-02-07] MEDS ORDERED: methylPREDNISolone Sodium Succinate 125 MG/2 ML SDV IVPUSH SCH (23:00)
[2021-02-07] MEDS ORDERED: Azithromycin 500 MG in Sodium Chloride 0.9% 250 ML IV SCH (23:30)
[2021-02-08] MEDS: Albuterol/Ipratropium 3.0-0.5 MG/3 ML Neb Soln NEB SCH ×3 (04:18→11:45)
[2021-02-08] MEDS ORDERED: Albuterol/Ipratropium 3.0-0.5 MG/3 ML Neb Soln ONE (04:20)
[2021-02-08] MEDS ORDERED: Albuterol/Ipratropium 3.0-0.5 MG/3 ML Neb Soln NEB PRN (06:02)
[2021-02-08] MEDS: Insulin Lispro 100 Units/ML 3 ML Vial SUBCUT SCH ×2 (07:42→11:45)
[2021-02-08] MEDS ORDERED: Enoxaparin 40 MG/0.4 ML Syringe SUBCUT SCH (08:00)
[2021-02-08] MEDS ORDERED: Citalopram 10 MG Tab PO SCH (08:00)
[2021-02-08 12:36] VITALS: BP 137/88; PULSE 98
--- NOTE | 2021-02-08 13:48 | PN ---
DATE: S: Carmen was admitted by Cassandra for possible pneumonia. She had a pretty classic acute gastroenteritis-type syndrome for about a day and she presented just feeling weak and unable to keep anything down. When she was evaluated in emergency room, she had complaints of abdominal pain along with a cough. Workup showed an elevated white count of almost 20,000. CT scan of the abdomen and pelvis showed some small pleural effusions in her chest along with some vascular congestion possibly/or even infiltrate. She was admitted ultimately to the hospital for volume replacement, antibiotics, nebulizer, etc. The patient is a known smoker. No history of COPD, but when she got here, she was still coughing and having some wheezing. Over the last day, she has felt much better. She got IV fluids. She feels much stronger. Her cough has improved. She did have a little drop in her sats down to I believe 88% last night. Gave her a neb and it came back up to 93%. When I reviewed her chart, chest x-ray did show borderline cardiomegaly and she looks like she almost has more of a vascular congestion picture. ProBNP was done this morning and it was elevated at over 10,000. O: GENERAL: She is pleasant, alert, and cooperative. She appears in no distress. NECK: Supple. Veins are flat. LUNGS: Her lungs sounds are improved with pretty good air movement, but she does have some end-expiratory wheezing. CARDIAC: Tones appear regular. ABDOMEN: Soft. EXTREMITIES: No edema. ASSESSMENT: 1. ACUTE GASTROENTERITIS WITH VOMITING. 2. POSSIBLE ASPIRATION PNEUMONIA. 3. BILATERAL PLEURAL EFFUSIONS WITH ELEVATED PROBNP. 4. TYPE 2 DIABETES, REQUIRING INSULIN. 5. HYPERTENSION. P: We will continue with nebs, antibiotics for now. She is saline locked and we are going to get an echocardiogram to evaluate for the elevated proBNP. The patient is upset about having to stay in our facility because she is a smoker. She has been offered a nicotine patch in that regard. No other changes at this time. MILENA/BETTYE /[id number]
[2021-02-08] MEDS ORDERED: Azithromycin 500 MG in Sodium Chloride 0.9% 250 ML IV SCH (20:00)
[2021-02-08] MEDS ORDERED: cefTRIAXone 1 GM Vial IVPUSH SCH (20:00)
[2021-02-08] MEDS ORDERED: methylPREDNISolone Sodium Succinate 125 MG/2 ML SDV IVPUSH SCH (20:00)
== END 2021-02-08 12:25 | disposition left against medical advice (07) | DRG 249 ==
LOC: CC.ED 19:55 → CC.MS 22:27 → UNDOADMIN 22:49 → CC.MS 22:49
PROVIDERS: ADMIT Nurse Practitioner Family; ATTEND Family Medicine
DX: K52.9 Noninfective gastroenteritis and colitis, unspecified (principal); J18.9 Pneumonia, unspecified organism; E27.8 Other specified disorders of adrenal gland; E86.0 Dehydration; E11.9 Type 2 diabetes mellitus without complications; F17.210 Nicotine dependence, cigarettes, uncomplicated; J90 Pleural effusion, not elsewhere classified; I10 Essential (primary) hypertension; Z88.5 Allergy status to narcotic agent; Z88.6 Allergy status to analgesic agent; Z79.899 Other long term (current) drug therapy; Z90.710 Acquired absence of both cervix and uterus; Z98.890 Other specified postprocedural states; Z79.4 Long term (current) use of insulin
CPT/HCPCS: 36415; 71046; 74177; 80048; 80053; 81001; 82150; 82947; 83690; 83880; 85025; 86140; 94640; 96374; 99285-25; A9270-GY; J0456; J0696; J1650; J1815-GY; J2405; J2930; J7030; J7050; J7120; J7620-GY; Q9967

== ENCOUNTER 2021-09-28 08:00 | Emergency (ER) | payer BC ==
[~2021-09-28 08:00] MED LIST changes: +Albuterol/Ipratropium 3.0-0.5 MG/3 ML Neb Soln ONE; -Ketamine 200 MG/20 ML MDV IV ONE; -Lactated Ringers 1,000 ML IV SCH; -Propofol 200 MG/20 ML SDV IV ONE; -fentaNYL 100 MCG/2 ML SDV IV ONE
[2021-09-28] MEDS ORDERED: Albuterol/Ipratropium 3.0-0.5 MG/3 ML Neb Soln NEB ONE (08:20)
[2021-09-28 08:54] LABS: CORONAVIRUS COVID-19 NAA POSITIVE (NEGATIVE)
[2021-09-28 08:56] VITALS: BP 141/78; PULSE 82
[2021-09-28] MEDS ORDERED: Ibuprofen 200 MG Tab PO PRN (09:02)
[2021-09-28 09:32] LABS: CHLORIDE,CL 101 mEq/L (98-106); SODIUM,NA 140 mEq/L (136-145)
[2021-09-28] MEDS ORDERED: busPIRone 5 MG Tab PO SCH (20:00)
[2021-09-29] MEDS ORDERED: Non-Formulary Medication 1 Each (Sitagliptin Phos/Metformin Hcl [Janumet Xr 50-1,000 Mg Ta PO SCH (08:00)
[2021-09-29] MEDS ORDERED: Non-Formulary Medication 1 Each (Citalopram Hydrobromide [Celexa] 40 MG Tablet) PO SCH (08:00)
== END 2021-09-28 10:20 | disposition home or self-care (01) ==
LOC: SUPCPDRO 08:00 → CC.ED 08:00
DX: U07.1 COVID-19 (principal); E11.9 Type 2 diabetes mellitus without complications; I50.9 Heart failure, unspecified; F17.200 Nicotine dependence, unspecified, uncomplicated; Z88.5 Allergy status to narcotic agent; Z88.8 Allergy status to other drugs, medicaments and biological substances
CPT/HCPCS: 0240U; 36415; 71046; 80053; 85025; 94640; 99284-25; A9270-GY; J7620-GY

== ENCOUNTER 2022-03-14 11:09 | Emergency (ER) | payer BC ==
[2022-03-14 11:21] VITALS: BP 150/86
== END 2022-03-14 12:19 | disposition left against medical advice (07) ==
LOC: CC.ED 11:09
DX: R07.89 Other chest pain (principal); E11.9 Type 2 diabetes mellitus without complications; Z88.5 Allergy status to narcotic agent; Z88.8 Allergy status to other drugs, medicaments and biological substances
CPT/HCPCS: 36415; 71045; 80053; 83735; 84484; 85025; 93005; 99285

== ENCOUNTER 2022-09-20 13:13 | Emergency (ER) | payer BC ==
[2022-09-20 13:34] VITALS: PULSE 98
[2022-09-20] MEDS: Acetaminophen/HYDROcodone 325-5 MG Tab PO ONE (13:35)
[2022-09-20] MEDS: Orphenadrine 60 MG/2 ML Inj IM ONE (14:06)
[2022-09-20 15:27] VITALS: BP 134/71
== END 2022-09-20 14:45 | disposition home or self-care (01) ==
LOC: CC.ED 13:13
DX: S73.102A Unspecified sprain of left hip, initial encounter (principal); E11.9 Type 2 diabetes mellitus without complications; Z88.5 Allergy status to narcotic agent; Z88.8 Allergy status to other drugs, medicaments and biological substances; X50.1XXA Overexertion from prolonged static or awkward postures, initial encounter
CPT/HCPCS: 96372; 99283; A9270-GY; J2360

== ENCOUNTER → 2023-03-02 | Day surgery (SDC) | payer BC ==
[~2023-03-02] MED LIST changes: -Albuterol/Ipratropium 3.0-0.5 MG/3 ML Neb Soln ONE; +Flumazenil 0.1 MG/ML 10 ML MDV ONE; +Ketamine 200 MG/20 ML MDV ONE; +Lactated Ringers 1,000 ML IV SCH; +Midazolam 1 MG/ML 2 ML SDV ONE; +Propofol 200 MG/20 ML SDV ONE; +fentaNYL 50 MCG/ML SDV ONE
[2023-03-02 13:03] VITALS: BP 165/77; PULSE 58
== END ==
LOC: CC.SDS 07:21
PROVIDERS: ATTEND Family Medicine
DX: K63.5 Polyp of colon (principal); K57.30 Diverticulosis of large intestine without perforation or abscess without bleeding; F41.9 Anxiety disorder, unspecified; M19.90 Unspecified osteoarthritis, unspecified site; M75.21 Bicipital tendinitis, right shoulder; I50.9 Heart failure, unspecified; F32.A Depression, unspecified; K52.9 Noninfective gastroenteritis and colitis, unspecified; G47.00 Insomnia, unspecified; D72.829 Elevated white blood cell count, unspecified; J30.2 Other seasonal allergic rhinitis; E11.9 Type 2 diabetes mellitus without complications; F17.200 Nicotine dependence, unspecified, uncomplicated; E55.9 Vitamin D deficiency, unspecified; Z88.8 Allergy status to other drugs, medicaments and biological substances; Z88.6 Allergy status to analgesic agent; Z88.5 Allergy status to narcotic agent; Z79.84 Long term (current) use of oral hypoglycemic drugs; Z79.899 Other long term (current) drug therapy; Z90.710 Acquired absence of both cervix and uterus
CPT/HCPCS: 00811; 82947; J2250; J2704; J3010; J3490; J7120

== ENCOUNTER → 2023-03-16 | Day surgery (SDC) | payer BC ==
[~2023-03-16] MED LIST changes: -Flumazenil 0.1 MG/ML 10 ML MDV ONE; +Lidocaine 2% 20 ML MDV ONE
[2023-03-16 12:37] VITALS: BP 148/62; PULSE 63
== END ==
LOC: CC.SDS 08:26
PROVIDERS: ATTEND Family Medicine
DX: K29.80 Duodenitis without bleeding (principal); K29.50 Unspecified chronic gastritis without bleeding; K27.9 Peptic ulcer, site unspecified, unspecified as acute or chronic, without hemorrhage or perforation; Z88.6 Allergy status to analgesic agent; Z88.5 Allergy status to narcotic agent; Z79.899 Other long term (current) drug therapy
CPT/HCPCS: 43239; 87081; J2250; J2704; J3010; J7120; 00731; J3490

== ENCOUNTER 2023-05-29 16:06 | Observation (INO) | payer BC ==
[2023-05-29] MEDS ORDERED: Ondansetron 4 MG/2 ML SDV IV PRN (16:12)
[2023-05-29] MEDS ORDERED: Sodium Chloride 0.9% 1,000 ML IV SCH (16:15)
[2023-05-29] MEDS ORDERED: fentaNYL 50 MCG/ML SDV IVPUSH PRN (16:15)
[2023-05-29 16:20] LABS: BASOPHILS ABSOLUTE AUTO 0.03 10^3/uL (0.00-0.50); BASOPHILS PERCENT AUTO 0.3 % (0-1); EOSINOPHILS ABSOLUTE AUTO 0.64 10^3/uL (0.00-1.50); EOSINOPHILS PERCENT AUTO 5.6 % (0-6); HEMATOCRIT 37.4 % (37.0-47.0); HEMOGLOBIN 12.9 g/dL (12.0-16.0); IMMATURE GRAN ABSOLUTE AUTO 0.01 10^3/uL (0.00-0.49); IMMATURE GRAN PERCENT AUTO 0.1 % (0.0-4.9); LYMPHOCYTES ABSOLUTE AUTO 2.28 10^3/uL (0.60-5.00); MEAN CORPUSCULAR HEMOGLOBIN 31.6 pg (27.0-32.0); MEAN CORPUSCULAR HGB CONC 34.5 g/dL (32.0-36.0); MEAN CORPUSCULAR VOLUME 91.7 fL (83.0-97.0); MONOCYTES ABSOLUTE AUTO 0.72 10^3/uL (0.00-1.50); MONOCYTES PERCENT AUTO 6.3 % (0-10); NEUTROPHILS ABSOLUTE AUTO 7.74 x10^3/uL (1.80-8.00); NEUTROPHILS PERCENT AUTO 67.7 % (41-71); PLATELET COUNT,PLT 365 10^3/uL (150-400); RED BLOOD CELL COUNT 4.08 x10^6/uL (4.00-5.50); WHITE BLOOD CELL COUNT,WBC 11.4 10^3/uL (4.0-11.0)
[2023-05-29 16:34] LABS: ALANINE AMINOTRANSFERASE,ALT 16 U/L (12-78); ALBUMIN 3.7 g/dL (3.4-5.0); ALKALINE PHOSPHATASE 84 U/L (46-116); ASPARTATE AMNIOTRANSFERASE,AST 14 U/L (15-37); BILIRUBIN TOTAL 0.6 mg/dL (0.0-1.0); BLOOD UREA NITROGEN,BUN 6 mg/dL (7-18); CALCIUM 9.4 mg/dL (8.4-10.1); CARBON DIOXIDE,CO2 26 mmol/L (21-32); CHLORIDE,CL 99 mEq/L (98-106); CREATININE 0.9 mg/dL (0.6-1.0); GLUCOSE RANDOM 116 mg/dL (75-99); MAGNESIUM 2.2 mg/dL (1.8-2.4); POTASSIUM,K 3.7 mEq/L (3.5-5.0); SODIUM,NA 134 mEq/L (136-145)
[2023-05-29 16:53] LABS: ESTIMATED GFR 76 mL/min (>=60)
[2023-05-29] MEDS: Acetaminophen 325 MG Tab PO PRN (16:58)
[2023-05-29] MEDS: Sodium Chloride 0.9% 1,000 ML IV STA (17:13)
[2023-05-29] MEDS: Sodium Chloride 0.9% 1,000 ML ONE (17:15)
[2023-05-29] MEDS: Iopamidol 755 Mg/ML 100 ML Bottle IVPUSH ONE (17:57)
[2023-05-29 20:03] VITALS: BP 135/84; PULSE 81
== END 2023-05-29 18:30 | disposition left against medical advice (07) ==
LOC: UNDOADMOB 16:06 → CC.MS 16:06
PROVIDERS: ADMIT Family Medicine; ATTEND Nurse Practitioner
DX: D73.5 Infarction of spleen (principal); E11.9 Type 2 diabetes mellitus without complications; I50.9 Heart failure, unspecified; F32.A Depression, unspecified; F41.9 Anxiety disorder, unspecified; G47.00 Insomnia, unspecified; E55.9 Vitamin D deficiency, unspecified; F17.200 Nicotine dependence, unspecified, uncomplicated; Z88.5 Allergy status to narcotic agent; Z88.8 Allergy status to other drugs, medicaments and biological substances; Z79.84 Long term (current) use of oral hypoglycemic drugs; Z79.899 Other long term (current) drug therapy; Z79.85 Long-term (current) use of injectable non-insulin antidiabetic drugs
CPT/HCPCS: 36415; 74175; 80053; 83735; 85025; A9270-GY; G0378; J7030; Q9967

== ENCOUNTER 2023-09-17 10:03 | Emergency (ER) | payer OTHER ==
[2023-09-17] MEDS ORDERED: Sodium Chloride 0.9% 10 ML Syringe FLUSH PRN (10:12)
[2023-09-17] MEDS ORDERED: Heparin Sodium 5,000 Units/ML Vial IVPUSH ONE (10:29)
[2023-09-17] MEDS ORDERED: Heparin Sodium/0.45% NaCl 500 ML IV SCH (10:30)
[2023-09-17] MEDS ORDERED: LORazepam 2 MG/ML SDV IVPUSH ONE (10:43)
[2023-09-17] MEDS ORDERED: Iopamidol 755 Mg/ML 100 ML Bottle IVPUSH ONE (10:57)
[2023-09-17] MEDS ORDERED: Aspirin 81 MG Tab.Chew PO ONE (11:23)
[2023-09-17] MEDS ORDERED: Furosemide 40 MG/4 ML VIAL IVPUSH ONE (12:04)
[2023-09-17 13:51] VITALS: BP 128/91; PULSE 92
== END 2023-09-17 14:25 ==
LOC: CC.ED 10:03
DX: I21.4 Non-ST elevation (NSTEMI) myocardial infarction (principal); I50.9 Heart failure, unspecified; E11.9 Type 2 diabetes mellitus without complications; Z20.822 Contact with and (suspected) exposure to COVID-19; Z88.5 Allergy status to narcotic agent; Z88.6 Allergy status to analgesic agent; Z88.8 Allergy status to other drugs, medicaments and biological substances; Z91.048 Other nonmedicinal substance allergy status
CPT/HCPCS: 36415; 71275; 85730; 87804; 93010; 96365; 96366; 96375; 96376; 99284; 99285-25; A9270-GY; J1644; J1940; J2060; Q9967; U0002

== ENCOUNTER 2023-10-26 13:56 | Emergency (ER) | payer OTHER ==
[2023-10-26 14:12] VITALS: BP 148/91; PULSE 76
[2023-10-26 14:16] LABS: BASOPHILS ABSOLUTE AUTO 0.03 10^3/uL (0.00-0.50); BASOPHILS PERCENT AUTO 0.2 % (0-1); EOSINOPHILS ABSOLUTE AUTO 0.07 10^3/uL (0.00-1.50); EOSINOPHILS PERCENT AUTO 0.4 % (0-6); HEMATOCRIT 39.4 % (37.0-47.0); HEMOGLOBIN 13.1 g/dL (12.0-16.0); IMMATURE GRAN ABSOLUTE AUTO 0.02 10^3/uL (0.00-0.49); IMMATURE GRAN PERCENT AUTO 0.1 % (0.0-4.9); LYMPHOCYTES ABSOLUTE AUTO 1.32 10^3/uL (0.60-5.00); LYMPHOCYTES PERCENT AUTO 7.4 % (24-44); MEAN CORPUSCULAR HEMOGLOBIN 29.8 pg (27.0-32.0); MEAN CORPUSCULAR HGB CONC 33.2 g/dL (32.0-36.0); MEAN CORPUSCULAR VOLUME 89.7 fL (83.0-97.0); MONOCYTES ABSOLUTE AUTO 0.33 10^3/uL (0.00-1.50); MONOCYTES PERCENT AUTO 1.8 % (0-10); NEUTROPHILS ABSOLUTE AUTO 16.13 x10^3/uL (1.80-8.00); NEUTROPHILS PERCENT AUTO 90.1 % (41-71); PLATELET COUNT,PLT 365 10^3/uL (150-400); RED BLOOD CELL COUNT 4.39 x10^6/uL (4.00-5.50); WHITE BLOOD CELL COUNT,WBC 17.9 10^3/uL (4.0-11.0)
[2023-10-26] MEDS: Ondansetron 4 MG/2 ML SDV IVPUSH PRN (14:22)
[2023-10-26] MEDS: HYDROmorphone 1 MG/ML Syringe IVPUSH ONE (14:23)
[2023-10-26 14:28] LABS: CREATININE,POC 0.58 mg/dL (0.51-1.19); POTASSIUM,POC 4.7 mmol/L (3.5-4.5)
[2023-10-26 14:29] LABS: CALCIUM IONIZED,POC 4.6 mmol/L (4.6-5.3)
[2023-10-26 14:34] LABS: ALBUMIN 4.2 g/dL (3.4-5.0); BILIRUBIN DIRECT 0.3 mg/dL (0.0-0.3); BILIRUBIN TOTAL 1.3 mg/dL (0.0-1.0); PROTEIN TOTAL,TP 8.3 g/dL (6.4-8.2)
[2023-10-26] MEDS: Iopamidol 755 Mg/ML 100 ML Bottle IVPUSH ONE (15:05)
[2023-10-26] MEDS: Sodium Chloride 0.9% 1,000 ML IV ONE (16:01)
[2023-10-26 16:22] LABS: APPEARANCE,URINE CLEAR (CLEAR); BILIRUBIN,URINE NEGATIVE (NEGATIVE); COLOR,URINE YELLOW (YELLOW); GLUCOSE,URINE NEGATIVE (NEGATIVE); KETONES,URINE 15 mg/dL (NEGATIVE); LEUKOCYTE ESTERASE,URINE NEGATIVE (NEGATIVE); NITRITE,URINE NEGATIVE (NEGATIVE); OCCULT BLOOD,URINE TRACE-INTACT (NEGATIVE); PH,URINE 7.5 (4.5-8.0); PROTEIN,URINE 30 mg/dL (NEGATIVE); UROBILINOGEN,URINE 0.2 EU/dL (0.2-1.0)
[2023-10-26 16:36] LABS: BACTERIA,URINE RARE /HPF (NOT SEEN); EPITHELIAL CELLS,URINE OCCASIONAL /HPF (NOT SEEN); RBC,URINE 0-5 /HPF (0-5); WBC,URINE 0-5 /HPF (0-5)
[2023-10-26] MEDS: Take Home: Ondansetron 4 MG Tab.DIS, 2 Tab Pack PO ONE (17:28)
== END 2023-10-26 18:25 | disposition home or self-care (01) ==
LOC: CC.ED 13:56
DX: A08.4 Viral intestinal infection, unspecified (principal); E87.20 Acidosis, unspecified; D72.829 Elevated white blood cell count, unspecified; I50.9 Heart failure, unspecified; E11.9 Type 2 diabetes mellitus without complications; Z79.899 Other long term (current) drug therapy; Z91.048 Other nonmedicinal substance allergy status; Z88.5 Allergy status to narcotic agent; Z88.8 Allergy status to other drugs, medicaments and biological substances; Z88.6 Allergy status to analgesic agent
CPT/HCPCS: 36415; 74177; 80047; 80076; 81001; 83605; 83690; 83735; 85025; 96361; 96374; 96375; 99284-25; A9270-GY; J1170; J2405; J7030; Q9967

== ENCOUNTER 2024-12-14 17:38 | Emergency (ER) | payer OTHER ==
[2024-12-14] MEDS: Ondansetron 4 MG/2 ML SDV IVPUSH ONE (17:49)
[2024-12-14] MEDS: Sodium Chloride 0.9% 500 ML IV STA (18:21)
[2024-12-14] MEDS: fentaNYL 50 MCG/ML SDV IVPUSH ONE (18:30)
[2024-12-14 18:34] LABS: APPEARANCE,URINE SLIGHTLY CLOUDY (CLEAR); BILIRUBIN,URINE SMALL (NEGATIVE); COLOR,URINE YELLOW (YELLOW); GLUCOSE,URINE 100 mg/dL (NEGATIVE); KETONES,URINE TRACE mg/dL (NEGATIVE); LEUKOCYTE ESTERASE,URINE NEGATIVE (NEGATIVE); NITRITE,URINE NEGATIVE (NEGATIVE); OCCULT BLOOD,URINE SMALL (NEGATIVE); PH,URINE 7.5 (4.5-8.0); PROTEIN,URINE >=300 mg/dL (NEGATIVE); UROBILINOGEN,URINE 0.2 EU/dL (0.2-1.0)
[2024-12-14 18:35] LABS: BASOPHILS ABSOLUTE AUTO 0.07 10^3/uL (0.00-0.50); BASOPHILS PERCENT AUTO 0.4 % (0-1); EOSINOPHILS ABSOLUTE AUTO 0.04 10^3/uL (0.00-1.50); EOSINOPHILS PERCENT AUTO 0.2 % (0-6); HEMATOCRIT 40.2 % (37.0-47.0); HEMOGLOBIN 13.7 g/dL (12.0-16.0); IMMATURE GRAN ABSOLUTE AUTO 0.05 10^3/uL (0.00-0.49); IMMATURE GRAN PERCENT AUTO 0.3 % (0.0-4.9); LYMPHOCYTES PERCENT AUTO 10.4 % (24-44); MEAN CORPUSCULAR HEMOGLOBIN 31.2 pg (27.0-32.0); MEAN CORPUSCULAR HGB CONC 34.1 g/dL (32.0-36.0); MEAN CORPUSCULAR VOLUME 91.6 fL (83.0-97.0); MONOCYTES PERCENT AUTO 5.5 % (0-10); NEUTROPHILS ABSOLUTE AUTO 15.21 x10^3/uL (1.80-8.00); NEUTROPHILS PERCENT AUTO 83.2 % (41-71); PLATELET COUNT,PLT 345 10^3/uL (150-400); RED BLOOD CELL COUNT 4.39 x10^6/uL (4.00-5.50); WHITE BLOOD CELL COUNT,WBC 18.3 10^3/uL (4.0-11.0)
[2024-12-14 18:41] LABS: BACTERIA,URINE RARE /HPF (NOT SEEN); EPITHELIAL CELLS,URINE FEW /HPF (NOT SEEN); MUCUS,URINE OCCASIONAL /HPF (NOT SEEN); RBC,URINE 0-5 /HPF (0-5); WBC,URINE 0-5 /HPF (0-5)
[2024-12-14 18:43] LABS: ALBUMIN 4.2 g/dL (3.4-5.0); CALCIUM 9.8 mg/dL (8.4-10.1); CREATININE 1.3 mg/dL (0.6-1.0); EST CRCL DRUG DOSING (CG) 45.23 mL/min; MAGNESIUM 1.7 mg/dL (1.8-2.4); PROTEIN TOTAL,TP 8.4 g/dL (6.4-8.2)
[2024-12-14 19:37] LABS: CORONAVIRUS COVID-19 NAA NEGATIVE (NEGATIVE); INFLUENZA A NAA NEGATIVE (NEGATIVE); INFLUENZA B NAA NEGATIVE (NEGATIVE)
[2024-12-14] MEDS: Iopamidol 755 Mg/ML 100 ML Bottle IVPUSH ONE (19:41)
[2024-12-14 20:22] VITALS: BP 159/77; PULSE 78
[2024-12-14] MEDS: Aspirin 81 MG Tab.Chew PO ONE (21:10)
[2024-12-14] MEDS ORDERED: Ondansetron 4 MG/2 ML SDV IVPUSH PRN (21:23)
[2024-12-14] MEDS: Heparin Sodium 5,000 Units/ML Vial IVPUSH ONE (21:25)
[2024-12-14] MEDS: Aspirin 300 MG Supp RECTAL SCH (21:29)
[2024-12-14] MEDS: Heparin Sodium/0.45% NaCl 25,000 UNITS/250 ML BAG IV SCH (21:30)
[2024-12-15] MEDS ORDERED: Aspirin 81 MG Tab.Chew PO SCH (08:00)
== END 2024-12-14 22:40 ==
LOC: CC.ED 17:38
DX: I21.4 Non-ST elevation (NSTEMI) myocardial infarction (principal); E87.20 Acidosis, unspecified; D72.829 Elevated white blood cell count, unspecified; R79.89 Other specified abnormal findings of blood chemistry; I50.9 Heart failure, unspecified; E78.00 Pure hypercholesterolemia, unspecified; I25.2 Old myocardial infarction; E11.9 Type 2 diabetes mellitus without complications; Z88.5 Allergy status to narcotic agent; Z88.8 Allergy status to other drugs, medicaments and biological substances; Z91.048 Other nonmedicinal substance allergy status; Z79.899 Other long term (current) drug therapy
CPT/HCPCS: 0240U; 36415; 71045; 74177; 80053; 81001; 83605; 83690; 83735; 84484; 85025; 85730; 87040; 93005; 96361; 96374; 96375; 96376; 99285-25; A9270-GY; J1644; J2405; J3010; J7040; Q9967

== ENCOUNTER 2025-04-07 13:21 | Emergency (ER) | payer OTHER ==
[2025-04-07] MEDS: Ondansetron 4 MG Tab.DIS PO ONE (13:43)
[2025-04-07] MEDS: Alum Hydrox/Mag Hydrox/Simeth 30 ML, Lidocaine 2% 15 ML PO ONE (13:51)
[2025-04-07 13:52] LABS: BASOPHILS ABSOLUTE AUTO 0.03 10^3/uL (0.00-0.50); BASOPHILS PERCENT AUTO 0.1 % (0-1); EOSINOPHILS ABSOLUTE AUTO 0.00 10^3/uL (0.00-1.50); EOSINOPHILS PERCENT AUTO 0.0 % (0-6); IMMATURE GRAN ABSOLUTE AUTO 0.05 10^3/uL (0.00-0.49); IMMATURE GRAN PERCENT AUTO 0.2 % (0.0-4.9); LYMPHOCYTES ABSOLUTE AUTO 1.54 10^3/uL (0.60-5.00); LYMPHOCYTES PERCENT AUTO 7.5 % (24-44); MONOCYTES ABSOLUTE AUTO 1.13 10^3/uL (0.00-1.50); MONOCYTES PERCENT AUTO 5.5 % (0-10); NEUTROPHILS ABSOLUTE AUTO 17.88 x10^3/uL (1.80-8.00); NEUTROPHILS PERCENT AUTO 86.7 % (41-71); PLATELET COUNT,PLT 301 10^3/uL (150-400); RED BLOOD CELL COUNT 3.89 x10^6/uL (4.00-5.50)
[2025-04-07 13:55] LABS: WHITE BLOOD CELL COUNT,WBC 20.6 10^3/uL (4.0-11.0)
[2025-04-07 14:12] LABS: LACTIC ACID 3.2 mmol/L (0.4-2.0)
[2025-04-07 14:26] LABS: APPEARANCE,URINE CLEAR (CLEAR); GLUCOSE,URINE 100 mg/dL (NEGATIVE); OCCULT BLOOD,URINE MODERATE (NEGATIVE)
[2025-04-07 14:27] LABS: ALANINE AMINOTRANSFERASE,ALT 24.0 U/L (12-78); ASPARTATE AMNIOTRANSFERASE,AST 34.0 U/L (15-37); BILIRUBIN TOTAL 0.8 mg/dL (0.0-1.0); BLOOD UREA NITROGEN,BUN 20.0 mg/dL (7-18); CARBON DIOXIDE,CO2 27.0 mmol/L (21-32); CHLORIDE,CL 96.0 mEq/L (98-106); CREATININE 1.3 mg/dL (0.6-1.0); EST CRCL DRUG DOSING (CG) 45.23 mL/min; ESTIMATED GFR 48.0 mL/min (>=60); GLUCOSE RANDOM 317.0 mg/dL (75-99); POTASSIUM,K 4.0 mEq/L (3.5-5.0); PROTEIN TOTAL,TP 7.9 g/dL (6.4-8.2); SODIUM,NA 136.0 mEq/L (136-145)
[2025-04-07 14:37] LABS: EPITHELIAL CELLS,URINE FEW /HPF (NOT SEEN)
[2025-04-07] MEDS: Heparin Sodium 5,000 Units/ML Vial IVPUSH ONE (14:52)
[2025-04-07] MEDS: Heparin Sodium/0.45% NaCl 25,000 UNITS/250 ML BAG IV SCH (14:55)
[2025-04-07 15:20] VITALS: BP 123/80; PULSE 97
[2025-04-07] MEDS: fentaNYL 50 MCG/ML SDV IVPUSH ONE ×2 (15:31→17:16)
[2025-04-07] MEDS: Ondansetron 4 MG/2 ML SDV IVPUSH STA (15:38)
== END 2025-04-07 18:30 ==
LOC: CC.ED 13:21
DX: I21.4 Non-ST elevation (NSTEMI) myocardial infarction (principal); E78.00 Pure hypercholesterolemia, unspecified; E11.9 Type 2 diabetes mellitus without complications; Z90.710 Acquired absence of both cervix and uterus; Z88.5 Allergy status to narcotic agent; Z88.6 Allergy status to analgesic agent; Z91.048 Other nonmedicinal substance allergy status; Z79.82 Long term (current) use of aspirin; Z79.899 Other long term (current) drug therapy
CPT/HCPCS: 36415; 71046; 80053; 81001; 83605; 83690; 83735; 84484; 85025; 85730; 86140; 87040; 93005; 96361; 96365; 96366; 96375; 96376; 99285-25; A9270-GY; J1644; J2405; J3010; J7030

== ENCOUNTER 2025-07-19 05:57 | Inpatient (IN) | payer OTHER ==
[2025-07-19 06:18] LABS: APPEARANCE,URINE CLEAR (CLEAR); BASOPHILS ABSOLUTE AUTO 0.06 10^3/uL (0.00-0.50); BASOPHILS PERCENT AUTO 0.2 % (0-1); EOSINOPHILS ABSOLUTE AUTO 0.01 10^3/uL (0.00-1.50); EOSINOPHILS PERCENT AUTO 0.0 % (0-6); GLUCOSE,URINE 500 mg/dL (NEGATIVE); IMMATURE GRAN ABSOLUTE AUTO 0.08 10^3/uL (0.00-0.49); IMMATURE GRAN PERCENT AUTO 0.3 % (0.0-4.9); LYMPHOCYTES ABSOLUTE AUTO 2.89 10^3/uL (0.60-5.00); LYMPHOCYTES PERCENT AUTO 10.5 % (24-44); MONOCYTES ABSOLUTE AUTO 1.68 10^3/uL (0.00-1.50); MONOCYTES PERCENT AUTO 6.1 % (0-10); NEUTROPHILS ABSOLUTE AUTO 22.73 x10^3/uL (1.80-8.00); NEUTROPHILS PERCENT AUTO 82.9 % (41-71); OCCULT BLOOD,URINE SMALL (NEGATIVE); PLATELET COUNT,PLT 378 10^3/uL (150-400); RED BLOOD CELL COUNT 4.90 x10^6/uL (4.00-5.50)
[2025-07-19] MEDS: Ondansetron 4 MG/2 ML SDV IVPUSH PRN ×2 (06:25→13:17)
[2025-07-19 06:29] LABS: EPITHELIAL CELLS,URINE FEW /HPF (NOT SEEN)
[2025-07-19 06:31] LABS: ALANINE AMINOTRANSFERASE,ALT 17.0 U/L (12-78); BILIRUBIN TOTAL 1.5 mg/dL (0.0-1.0); BLOOD UREA NITROGEN,BUN 19.0 mg/dL (7-18); CARBON DIOXIDE,CO2 22.0 mmol/L (21-32); CREATININE 1.3 mg/dL (0.6-1.0); EST CRCL DRUG DOSING (CG) 45.23 mL/min; GLUCOSE RANDOM 272.0 mg/dL (75-99); PROTEIN TOTAL,TP 8.1 g/dL (6.4-8.2)
[2025-07-19 06:42] LABS: WHITE BLOOD CELL COUNT,WBC 27.5 10^3/uL (4.0-11.0)
[2025-07-19 07:07] LABS: ASPARTATE AMNIOTRANSFERASE,AST 16.0 U/L (15-37); CHLORIDE,CL 92.0 mEq/L (98-106); ESTIMATED GFR 48.0 mL/min (>=60); POTASSIUM,K 3.7 mEq/L (3.5-5.0); SODIUM,NA 133.0 mEq/L (136-145)
[2025-07-19] MEDS: Iopamidol 755 Mg/ML 100 ML Bottle IVPUSH ONE (08:14)
[2025-07-19] MEDS ORDERED: Ondansetron 4 MG/2 ML SDV IV PRN (15:45)
[2025-07-19] MEDS: Heparin Sodium/0.45% NaCl 25,000 UNITS/250 ML BAG IV SCH (16:01)
[2025-07-19 16:03] LABS: INR 1.06 (0.92-1.18); PTT,PARTIAL THROMBOPLSTIN TIME 25.6 SEC (20.0-30.0)
[2025-07-19] MEDS: Heparin Sodium 5,000 Units/ML Vial IVPUSH ONE (16:05)
[2025-07-19] MEDS: Metoprolol Succinate 100 MG Tab.ER PO SCH (17:55)
[2025-07-19] MEDS: Ondansetron 4 MG Tab.DIS PO PRN (22:52)
[2025-07-20 07:43] LABS: BASOPHILS ABSOLUTE AUTO 0.07 10^3/uL (0.00-0.50); BASOPHILS PERCENT AUTO 0.5 % (0-1); EOSINOPHILS ABSOLUTE AUTO 0.02 10^3/uL (0.00-1.50); EOSINOPHILS PERCENT AUTO 0.1 % (0-6); IMMATURE GRAN ABSOLUTE AUTO 0.03 10^3/uL (0.00-0.49); IMMATURE GRAN PERCENT AUTO 0.2 % (0.0-4.9); LYMPHOCYTES ABSOLUTE AUTO 2.49 10^3/uL (0.60-5.00); LYMPHOCYTES PERCENT AUTO 17.4 % (24-44); MONOCYTES ABSOLUTE AUTO 1.01 10^3/uL (0.00-1.50); MONOCYTES PERCENT AUTO 7.1 % (0-10); NEUTROPHILS ABSOLUTE AUTO 10.70 x10^3/uL (1.80-8.00); NEUTROPHILS PERCENT AUTO 74.7 % (41-71); PLATELET COUNT,PLT 279 10^3/uL (150-400); RED BLOOD CELL COUNT 4.12 x10^6/uL (4.00-5.50); WHITE BLOOD CELL COUNT,WBC 14.3 10^3/uL (4.0-11.0)
[2025-07-20 07:50] LABS: ALANINE AMINOTRANSFERASE,ALT 16.0 U/L (12-78); ASPARTATE AMNIOTRANSFERASE,AST 19.0 U/L (15-37); BILIRUBIN TOTAL 1.0 mg/dL (0.0-1.0); BLOOD UREA NITROGEN,BUN 15.0 mg/dL (7-18); CARBON DIOXIDE,CO2 28.0 mmol/L (21-32); CHLORIDE,CL 98.0 mEq/L (98-106); CREATININE 1.0 mg/dL (0.6-1.0); EST CRCL DRUG DOSING (CG) 58.81 mL/min; GLUCOSE RANDOM 138.0 mg/dL (75-99); POTASSIUM,K 4.0 mEq/L (3.5-5.0); PROTEIN TOTAL,TP 6.5 g/dL (6.4-8.2); SODIUM,NA 135.0 mEq/L (136-145)
[2025-07-20 07:57] LABS: ESTIMATED GFR 66.0 mL/min (>=60)
[2025-07-21 04:34] LABS: BASOPHILS ABSOLUTE AUTO 0.07 10^3/uL (0.00-0.50); BASOPHILS PERCENT AUTO 0.7 % (0-1); EOSINOPHILS ABSOLUTE AUTO 0.14 10^3/uL (0.00-1.50); EOSINOPHILS PERCENT AUTO 1.4 % (0-6); IMMATURE GRAN ABSOLUTE AUTO 0.02 10^3/uL (0.00-0.49); IMMATURE GRAN PERCENT AUTO 0.2 % (0.0-4.9); LYMPHOCYTES ABSOLUTE AUTO 2.77 10^3/uL (0.60-5.00); LYMPHOCYTES PERCENT AUTO 27.4 % (24-44); MONOCYTES ABSOLUTE AUTO 0.88 10^3/uL (0.00-1.50); MONOCYTES PERCENT AUTO 8.7 % (0-10); NEUTROPHILS ABSOLUTE AUTO 6.24 x10^3/uL (1.80-8.00); NEUTROPHILS PERCENT AUTO 61.6 % (41-71); PLATELET COUNT,PLT 242 10^3/uL (150-400); RED BLOOD CELL COUNT 3.91 x10^6/uL (4.00-5.50); WHITE BLOOD CELL COUNT,WBC 10.1 10^3/uL (4.0-11.0)
[2025-07-21 04:38] LABS: ALANINE AMINOTRANSFERASE,ALT 13.0 U/L (12-78); ASPARTATE AMNIOTRANSFERASE,AST 13.0 U/L (15-37); BILIRUBIN TOTAL 0.9 mg/dL (0.0-1.0); BLOOD UREA NITROGEN,BUN 20.0 mg/dL (7-18); CARBON DIOXIDE,CO2 27.0 mmol/L (21-32); CHLORIDE,CL 100.0 mEq/L (98-106); CREATININE 1.0 mg/dL (0.6-1.0); EST CRCL DRUG DOSING (CG) 58.81 mL/min; GLUCOSE RANDOM 78.0 mg/dL (75-99); POTASSIUM,K 3.4 mEq/L (3.5-5.0); PROTEIN TOTAL,TP 6.3 g/dL (6.4-8.2); SODIUM,NA 136.0 mEq/L (136-145)
[2025-07-21 04:40] LABS: ESTIMATED GFR 66.0 mL/min (>=60)
[2025-07-22 07:18] LABS: BLOOD UREA NITROGEN,BUN 17.0 mg/dL (7-18); CARBON DIOXIDE,CO2 30.0 mmol/L (21-32); CHLORIDE,CL 101.0 mEq/L (98-106); CREATININE 1.0 mg/dL (0.6-1.0); EST CRCL DRUG DOSING (CG) 58.81 mL/min; GLUCOSE RANDOM 103.0 mg/dL (75-99); POTASSIUM,K 3.6 mEq/L (3.5-5.0); SODIUM,NA 139.0 mEq/L (136-145)
[2025-07-22 07:24] LABS: BASOPHILS ABSOLUTE AUTO 0.07 10^3/uL (0.00-0.50); BASOPHILS PERCENT AUTO 0.8 % (0-1); EOSINOPHILS ABSOLUTE AUTO 0.21 10^3/uL (0.00-1.50); EOSINOPHILS PERCENT AUTO 2.5 % (0-6); IMMATURE GRAN ABSOLUTE AUTO 0.02 10^3/uL (0.00-0.49); IMMATURE GRAN PERCENT AUTO 0.2 % (0.0-4.9); LYMPHOCYTES ABSOLUTE AUTO 1.94 10^3/uL (0.60-5.00); LYMPHOCYTES PERCENT AUTO 23.0 % (24-44); MONOCYTES ABSOLUTE AUTO 0.76 10^3/uL (0.00-1.50); MONOCYTES PERCENT AUTO 9.0 % (0-10); NEUTROPHILS ABSOLUTE AUTO 5.44 x10^3/uL (1.80-8.00); NEUTROPHILS PERCENT AUTO 64.5 % (41-71); PLATELET COUNT,PLT 232 10^3/uL (150-400); RED BLOOD CELL COUNT 4.09 x10^6/uL (4.00-5.50); WHITE BLOOD CELL COUNT,WBC 8.4 10^3/uL (4.0-11.0)
[2025-07-22 07:32] LABS: ESTIMATED GFR 66.0 mL/min (>=60)
[2025-07-22 07:49] VITALS: BP 123/57; PULSE 66
== END 2025-07-22 12:30 | disposition home or self-care (01) | DRG 948 ==
LOC: CC.ED 05:57 → CC.MS 15:18 → UNDOADMIN 15:25 → CC.MS 15:25
PROVIDERS: ADMIT Physician Assistant Medical; ATTEND Physician Assistant Medical
DX: R79.89 Other specified abnormal findings of blood chemistry (principal); E87.20 Acidosis, unspecified; R11.2 Nausea with vomiting, unspecified; D72.829 Elevated white blood cell count, unspecified; E78.00 Pure hypercholesterolemia, unspecified; I50.9 Heart failure, unspecified; F41.9 Anxiety disorder, unspecified; E11.9 Type 2 diabetes mellitus without complications; I25.2 Old myocardial infarction; Z90.711 Acquired absence of uterus with remaining cervical stump; Z79.82 Long term (current) use of aspirin; Z79.899 Other long term (current) drug therapy; Z88.8 Allergy status to other drugs, medicaments and biological substances; Z98.890 Other specified postprocedural states
CPT/HCPCS: 36415; 71046; 74177; 80048; 80053; 81001; 83605; 84484; 85025; 85610; 85730; 86140; 87040; 93005; 93010; 96361; 96374; 96375; 96376; 99223; 99232; 99233; 99238; 99285-25; A9270-GY; J1644; J2405; J2470; J7030; Q9967